=== PATIENT | female | born 1945 | race Caucasian/White ===

== ENCOUNTER → 2017-01-04 | Outpatient (CLI) | payer OTHER, MEDICARE ==
[~2017-01-04] MED LIST: ASPEC81 PO; ASPI81TA28 PO; ATOR-24 PO; CYAN500T13 PO; FLAX10007 PO; GARL1TAB12 PO; GARL705C PO; IBUP-1050 PO; LOSA50TA6 PO; LPR25 PO; LPT40 PO; LSN5 PO; MAGN250T3 PO; MISC1TAB74 PO; NIAC250T8 PO; OMEGCAP2 PO; PLV75 PO; POTA1TAB94 PO; PYRI100T4 PO; SULF-183 PO; TPRSR/25 PO; ZNTT/150 PO
--- NOTE | 2017-01-04 13:42 | MAMMOGRAPHY REPORT ---
BILATERAL DIGITAL SCREENING MAMMOGRAM WITH CAD: 01/04/2017 CLINICAL HISTORY: Routine screening. Patient has no complaints. TECHNIQUE: Current study was also evaluated with a Computer Aided Detection (CAD) system. Bilateral CC and MLO views were obtained. Note that the right MLO view is somewhat suboptimal due to difficul ties with the patient to tolerate proper positioning due to limited range of motion in her shoulder; note that the pectoralis muscle is not visualized on the right MLO view. COMPARISON: Comparison is made to exams dated: 01/03/2016 mammogram, 12/30/2014 mammogram, 4 mammogram, 12/25/2012 mammogram, 12/25/2011 mammogram, and 12/21/2010 mammogram - [facility]. BREAST COMPOSITION: The tissue of both breasts is almost entirely fatty. FINDINGS: No suspicious masses, calcifications, or areas of architectural distortion are noted in ei ther breast. There has been no significant interval change compared to prior exams. IMPRESSION: ACR BI-RADS CATEGORY 1: NEGATIVE There is no mammographic evidence of malignancy. A 1 year screening mammogram is recommended. The pa tient will receive written notification of the results. Approximately 10% of breast cancers are not detected with mammography. A negative mammographic report should not delay biopsy if a clinically suggestive mass is present. Kimmy Moran M.D. /:01/04/2017 12:07:18 Acid Patroller: Avelina Mehta, [facility] letter sent: Normal 1/2 BI-RADS Code: ACR BI-RADS Category 1: Negative
== END | disposition home or self-care (01) ==
LOC: C.MAMM 08:57
PROVIDERS: ATTEND Obstetrics & Gynecology
DX: Z12.31 Encounter for screening mammogram for malignant neoplasm of breast (principal)

== ENCOUNTER 2017-03-01 06:28 | Inpatient (IN) | payer OTHER, MEDICARE ==
[2017-01-16 10:12] VITALS: BMI 36.0
--- NOTE | 2017-01-16 10:45 | PAT Medication Instructions ---
Service Date Jan 16, 2017. Current Home Medication List Aspirin (Aspirin Ec), 81 MG PO QAM Atorvastatin (Lipitor), 40 MG PO QAM Cyanocobalamin (Vitamin B12 500MCG), 250 MCG PO QPM Flaxseed (Linseed) (Flax Seed Oil), 1 CAP PO QPM Ibuprofen (Advil), 200 MG PO QAM Losartan Potassium (Cozaar), 50 MG PO QAM Magnesium (Magnesium 250 mg), 1 TAB PO QPM Metoprolol Succinate (Metoprolol Succinate ER), 25 MG PO QPM Misc Natural Products (Green Tea), 1 TAB PO QPM Pyridoxine (Vitamin B6), 0.5 TAB PO QPM Ranitidine (Zantac), 150 MG PO BID Medication Instructions For Your Scheduled Surgery - Hold the following medications 2 weeks prior to surgery: Flaxseed (Linseed) (Flax Seed Oil), 1 CAP PO QPM - Hold the following medications per your surgeon's instructions: Ibuprofen (Advil), 200 MG PO QAM - Hold the following medications the morning of surgery: Losartan Potassium (Cozaar), 50 MG PO QAM - Take the following medications the morning of surgery with a sip of water: Aspirin (Aspirin Ec), 81 MG PO QAM Ranitidine (Zantac), 150 MG PO BID Atorvastatin (Lipitor), 40 MG PO QAM - Take the following medications as scheduled the night before surgery: Ranitidine (Zantac), 150 MG PO BID Magnesium (Magnesium 250 mg), 1 TAB PO QPM Metoprolol Succinate (Metoprolol Succinate ER), 25 MG PO QPM Misc Natural Products (Green Tea), 1 TAB PO QPM Pyridoxine (Vitamin B6), 0.5 TAB PO QPM Cyanocobalamin (Vitamin B12 500MCG), 250 MCG PO QPM If you have any questions please call us at [phone] or [phone] or [phone]
[2017-01-16 11:18] LABS: BASO % 0.3 %; BASO ABS # 0.02 K/uL (0-0.2); COMPLETE YES; EOS % 1.1 %; HEMATOCRIT 39.3 % (37-47); IG% 0.1 %; LYMPH % 21.7 %; LYMPH ABS # 1.63 K/uL (1.2-3.4); MEAN CELL VOLUME 87.3 fL (80-100); MEAN CORPUSCULAR HEMOGLOBIN 29.1 pg (25-34); MEAN CORPUSCULAR HGB CONC 33.3 g/dl (32-36); MEAN PLATELET VOLUME 9.3 fL (7.4-10.4); MONO % 6.3 %; NEUT % 70.5 %; PLATELET COUNT 272 K/uL (130-400); WHITE BLOOD COUNT 7.52 K/uL (4.8-10.8)
[2017-01-16 11:21] LABS: URINE APPEARANCE CLEAR (CLEAR); URINE BILIRUBIN NEG (NEG); URINE COLOR YELLOW; URINE EPITHELIAL CELL AUTO 0-5 /lpf (0-5); URINE NITRITE NEG (NEG); URINE SPECIFIC GRAVITY 1.025 (1.000-1.030); UROBILINOGEN NEG (NEG)
[2017-01-16 11:23] LABS: MANUAL MICROSCOPIC REQUIRED? NO; REVIEW REQ? NO
[2017-01-16 11:29] LABS: PROTHROMBIN TIME (PATIENT) 10.4 SECONDS (9.0-12.0)
--- NOTE | 2017-01-16 11:44 | DIAGNOSTIC IMAGING REPORT ---
CHEST PREADMISSION(PA/LAT) CLINICAL HISTORY: Preoperative evaluation. COMPARISON STUDY: Chest radiograph November 16, 2015. FINDINGS: Lung volumes are normal. No pneumothorax or pleural effusion is present. Pulmonary vascularity is normal. Cardiac size is within normal limits. Incidental note is made of S-shaped scoliosis of the thoracolumbar spine. There is no consolidation to suggest pneumonia. Apparent osteoarthritis of the right glenohumeral joint is noted. A subcoracoid loose body may be present. IMPRESSION: No acute cardiopulmonary findings. Electronically signed by: Kin Vera M.D. 01/16/2017 11:43 AM Dictated Date/Time: 01/16/2017 11:41 AM
--- NOTE | 2017-02-27 17:20 | HISTORY & PHYSICAL EXAMINATION ---
DATE OF ADMISSION: 03/01/2017 CHIEF COMPLAINT: Primary osteoarthritis of the right shoulder. HISTORY OF PRESENT ILLNESS: Arelis is a pleasant 71-year-old female who has been dealing with a several year history of chronic right shoulder pain. She is having trouble sleeping at night and having trouble doing activities away from her body. X-rays and clinical examination of the shoulder have been diagnostic for primary osteoarthritis. After failing extensive conservative treatment, she elected to proceed with a right total shoulder arthroplasty. PAST MEDICAL HISTORY: MS in October of 2015, heart murmur, hypertension. She had cardiac stent placement in October 2015 and heart catheterization in October of 2016, hyperparathyroidism, osteoarthritis, obesity, GERD. MEDICATIONS: Aspirin 81 mg daily, Lipitor 40 mg daily, losartan 50 mg daily, metoprolol 25 mg daily, Zantac 150 mg twice a day, vitamin B12 250 mg daily. PAST SURGICAL HISTORY: Significant for a tonsillectomy, tubal ligation, ORIF of the right wrist and a left total knee arthroplasty. FAMILY HISTORY: Denies. SOCIAL HISTORY: She denies any tobacco, alcohol or IV drug use. Her activities are limited because of her shoulder pain. REVIEW OF SYSTEMS: She complains of right shoulder pain. All other pertinent review of systems are negative. PHYSICAL EXAMINATION: GENERAL: She is awake, alert and oriented x3. She is in no apparent distress. She is very pleasant. HEENT: Pupils are equal, round and reactive to light. Extraocular motion intact. Oral mucosa is pink and moist. HEART: Regular rate per radial pulse. LUNGS: Jenni symmetrically bilaterally with no audible breath sounds. ABDOMEN: Soft, nontender, nondistended. MUSCULOSKELETAL: On physical examination of the shoulder, she has about 170 degrees of forward flexion, 170 degrees of abduction. She has a lot of crepitus with active range of motion. Passively I can get her a little bit further. She has significant tenderness to palpation over the anterior glenohumeral joint line. She has 4/5 muscle strength throughout but possibly secondary to pain. She is neurovascularly intact. IMAGING DATA: X-rays of the right shoulder do show advanced osteoarthritis with some anterior subluxation of the humeral head and anterior wear of the humeral head on the glenoid. IMPRESSION: Primary osteoarthritis of the right shoulder. PLAN: Will proceed with a Biomet comprehensive right total shoulder arthroplasty. Postoperatively, she will be placed in an arm sling and kept overnight at the hospital for postoperative medical management.
[~2017-03-01] VITALS: Ht 152.4 cm; Wt 85.4 kg
[2017-03-01] VITALS (10 sets, daily range): BP systolic 94–167; BP diastolic 53–76; PULSE 65–85; TEMP 35.9–36.7; O2SAT 93–99; Ht 152.4 cm; Wt 85.4 kg
[~2017-03-01 06:28] MED LIST changes: +ACETAMINOPHEN 500 MG TAB PO SCH; -ASPEC81 PO; +CEFAZOLIN 2000MG IV PUSH 10 ML IV SCH; +FAMOTIDINE 20 MG TAB PO SCH; +GABAPENTIN 300 MG CAP PO SCH; -GARL1TAB12 PO; -GARL705C PO; +LACTATED RINGER'S 1000ML 1,000 ML IV SCH; +LACTATED RINGER'S 1000ML IV SCH; -LPR25 PO; -LPT40 PO; -LSN5 PO; -NIAC250T8 PO; -OMEGCAP2 PO; -PLV75 PO; -POTA1TAB94 PO; +ROPIVACAINE 5MG/ML 30 ML 150 MG, BUPIVACAINE 0.5% MPF INJ 30 ML, EpINEphrine HCL INJ 0.... INFIL SCH; -SULF-183 PO
[2017-03-01] MEDS: TRANEXAMIC ACID INJ 1,000 MG in SYRINGE 0 ML IV SCH ×2 (06:30→09:11)
--- NOTE | 2017-03-01 06:54 | History & Physical Bridge Note ---
H&P Re-Evaluation Bridge Note: I have examined the patient, reviewed the History & Physical and in the interval since the performance of the History & Physical I have noted the following changes of clinical significance: No changes noted
[2017-03-01] MEDS ORDERED: BUPIVACAINE 0.5 % 5 MG/1 ML PF 10ML VIAL ONE (07:11)
[2017-03-01] MEDS ORDERED: MEPIVACAINE HCL 1.5% 30 ML VIAL ONE (07:11)
[2017-03-01] MEDS ORDERED: CLONIDINE HCL 100 MCG/ML SYRINGE ONE (07:11)
[2017-03-01] MEDS ORDERED: PROPOFOL IV EMULSION 10 MG/ML 20 ML VIAL IV ONE (08:34)
[2017-03-01] MEDS ORDERED: ONDANSETRON INJ 2 MG/ML 2 ML VIAL ONE ×2 (08:34→12:40)
[2017-03-01] MEDS ORDERED: LIDOCAINE HCL 2% 2 ML VIAL (20MG/ML) ONE (08:34)
[2017-03-01] MEDS ORDERED: GLYCOPYRROLATE INJ 0.2 MG/ML VIAL ONE ×2 (08:34→10:26)
[2017-03-01] MEDS ORDERED: DEXAMETHASONE SOD INJ 4 MG/ML VIAL ONE (08:34)
[2017-03-01] MEDS ORDERED: NEOSTIGMINE METHYLSULFATE 5 MG/5 ML SYR ONE (08:34)
[2017-03-01] MEDS ORDERED: FENTANYL CITRATE INJ 50 MCG/1 ML 2 ML VIAL ONE (08:35)
[2017-03-01] MEDS ORDERED: MIDAZOLAM HCL 1 MG/ML 2ML VIAL ONE ×2 (08:35→08:54)
[2017-03-01] MEDS ORDERED: BACITRACIN 50000 UNIT VIAL ONE (09:22)
[2017-03-01] MEDS ORDERED: ORTHO JOINT ANESTHETIC ONE (09:22)
[2017-03-01] MEDS ORDERED: PHENYLEPHRINE HCL INJ 10 MG/ML VIAL ONE (10:26)
[2017-03-01] MEDS ORDERED: LARYING-O-JET KIT (LTA) ONE ×2 (10:26)
[2017-03-01] MEDS ORDERED: ROCURONIUM BROMIDE 10 MG/ML 5 ML VIAL IV ONE (11:08)
--- NOTE | 2017-03-01 11:37 | [facility] Post Operative Brief Note ---
Immediate Operative Summary Operative Date Mar 01, 2017. Pre-Operative Diagnosis Primary osteoarthritis of the right shoulder. Post-Operative Diagnosis same as pre-operative Procedure(s) Performed Right Total Shoulder Arthroplasty Surgeon Dr. Patrick Shi Lining Setter Surgeon(s) ADILSON Allen Estimated Blood Loss 250ml Findings as above Specimens Permanent Specimen A: Right humeral head Complication(s) Proximal humeral fracture (crack) treated with a cable Disposition Recovery Room / PACU
[2017-03-01] MEDS ORDERED: HYDROmorphone INJ 1 MG/ML SYR IV PRN (11:45)
[2017-03-01] MEDS ORDERED: BISACODYL 10 MG SUPP PR PRN (11:45)
[2017-03-01] MEDS ORDERED: SOD PHOSPHATE/SOD BIPHOSPHATE ENEMA 132 ML BTL PR PRN (11:45)
[2017-03-01] MEDS ORDERED: NALOXONE HCL 0.4 MG/1 ML VIAL/CARP IV PRN ×2 (11:45→12:15)
[2017-03-01] MEDS ORDERED: CEFAZOLIN IV 2,000 MG in DEXTROSE 5% 50ML 50 ML IV SCH (11:45)
[2017-03-01] MEDS ORDERED: MAGNESIUM HYDROXIDE SUSP 30 ML UDC PO PRN (11:45)
[2017-03-01] MEDS ORDERED: METOCLOPRAMIDE HCL INJ 5 MG/ML 2 ML VIAL IV PRN (11:45)
[2017-03-01] MEDS ORDERED: ONDANSETRON INJ 2 MG/ML 2 ML VIAL IV PRN ×2 (11:45→12:15)
[2017-03-01] MEDS ORDERED: PROMETHAZINE HCL INJ 12.5 MG in SODIUM CHLORIDE 0.9% 50ML 50 ML IV PRN (12:15)
[2017-03-01] MEDS ORDERED: FLUMAZENIL 0.1 MG/1 ML 10 ML VIAL IV PRN (12:15)
[2017-03-01] MEDS ORDERED: EpHEDrine SULFATE INJ 50 MG/ML AMP IV PRN (12:15)
[2017-03-01] MEDS ORDERED: LABETALOL HCL IV 5 MG/ML 20ML IV PRN (12:15)
[2017-03-01] MEDS ORDERED: ATROPINE SULFATE 0.1 MG/ML 5ML SYR IV PRN (12:15)
--- NOTE | 2017-03-01 12:43 | DIAGNOSTIC IMAGING REPORT ---
R SHOULDER MIN 2 VIEWS ROUTINE CLINICAL HISTORY: Post shoulder surgery postoperative evaluation COMPARISON: None. DISCUSSION: Total right shoulder arthroplasty. Good contact between prosthetic and underlying bone. Expected soft tissue postoperative change. Surgical drains in position. Possible cortical defect humeral shaft immediately distal to the humeral prosthetic. IMPRESSION: Potential cortical fracture medially distal to the humeral prosthetic. All remaining components of the study remain stable. The above report was generated using voice recognition software. It may contain grammatical, syntax or spelling errors. Electronically signed by: Tee Live M.D. 03/01/2017 12:42 PM Dictated Date/Time: 03/01/2017 12:39 PM
--- NOTE | 2017-03-01 12:58 | OPERATIVE REPORT ---
DATE OF OPERATION: 03/01/2017 PREOPERATIVE DIAGNOSIS: Primary osteoarthritis of the right shoulder with an insufficient rotator cuff. POSTOPERATIVE DIAGNOSIS: Same. PROCEDURE: Right reverse total shoulder arthroplasty. SURGEON: Dr. Patrick Shi. STATE AUDITOR: Gagan Em PA-C, whose assistance was necessary for positioning of the arm and retraction. ANESTHESIA: General with a right interscalene nerve block. COMPLICATIONS: Longitudinal proximal humeral crack that was treated with a cable. CONDITION: Stable to PACU. IMPLANTS USED: I used a Biomet comprehensive reverse right shoulder arthroplasty with a 25 mm mini base plate, a single 35 mm central screw, 2 peripheral locking screws, a 36 mm eccentric glenosphere, a size 11 mini stem and a standard humeral tray and bearing. INDICATIONS: Arelis is a pleasant 72-year-old female who presented to my office with chronic right shoulder pain. She had limited range of motion too. X-rays showed advanced osteoarthritis with anterior glenoid wear. After failing conservative treatment, she elected to undergo a shoulder replacement. DESCRIPTION OF PROCEDURE: On 03/01/2017, she arrived at [facility] for the above procedure. She was seen in the preoperative holding area and the operative extremity was identified and signed. She was given a preoperative antibiotic and a right interscalene nerve block. She was taken back to the operating room, laid on the table in supine position and put under general anesthesia. She was then put into the beachchair position. The right shoulder was prepped and draped in sterile fashion. Time-out was done and the patient and operative extremity was properly identified. A deltopectoral approach was used. Dissection was taken down through the fascia and the anterior shoulder was exposed. The long head of biceps tendon was tenotomized and the interval was opened. The subscapularis was tenotomized off the lesser tuberosity with a centimeter of cuff tissue remaining. The supraspinatus had a 90% partial thickness rotator cuff tear and the remaining 10% was released. At this point, I decided to do a reverse shoulder arthroplasty. The proximal humerus was exposed. Sequential reaming up to a size 11 reamer was done. Off that reamer, a proximal humeral resection guide was placed and the proximal humerus was resected at 135 degrees of inclination and 20 degrees of retroversion. The glenoid was then exposed. Time was spent doing a complete circumferential capsular and labral release. The Arthrex guide was then placed on the anterior cortex and a guide pin was placed in reverse total shoulder arthroplasty hole. A 25 mm mini base plate was then reamed and the final baseplate was then impacted into place. A 35 mm central screw was placed and got an excellent bite. Superior and inferior locking screws were then placed. A 36 mm eccentric glenosphere was then impacted into place. The proximal humerus was exposed. Sequential broaching up to an 11 broach was done. A standard humeral tray and bearing was placed and the shoulder was reduced, brought through a full range of motion and felt to be stable. The shoulder was then dislocated. The final 11 stem was then impacted into place and a standard humeral tray and bearing were then placed. The shoulder was reduced. The shoulder was brought through a full range of motion and felt to be stable. The subscapularis was then tenodesed back to the lesser tuberosity with transosseous FiberWire sutures. The surrounding joint was then irrigated with 3 liters of normal saline solution with bacitracin. Surrounding soft tissues were injected with 100 mL of an orthopedic pain control cocktail. On final examination of the shoulder, when I was going in external rotation, I did feel slight crack. I was able to palpate a longitudinal crack posteriorly on the humeral neck. When I went to extreme external rotation, it seemed like the humeral stem was unstable. I decided to place a cable. A single dull Ramon cable was placed around the proximal humerus. This allowed an anatomic reduction of the fracture. I could not even feel the fracture after the cable was placed. I brought the shoulder through a full range of motion and everything felt stable including the stem. The wound was then irrigated once again. A drain was placed. Skin was then closed with 2-0 Vicryl, 3-0 V-Loc suture and angy. She was placed in a soft dressing and regular arm sling. She was then extubated, transferred to a [facility] and taken to the postanesthesia care unit in stable condition. She tolerated the procedure well. I attest to the content of the Intraoperative Record and any orders documented therein. Any exception s are noted below.
[2017-03-01] MEDS ORDERED: SUCCINYLCHOLINE 100MG/5ML SYR IV ONE (13:15)
--- NOTE | 2017-03-01 13:18 | Anesthesiology Progress Note ---
Anesthesia Post Op Note Date & Time Mar 01, 2017 at 13:17 Vital Signs Pain Intensity: 0 Vital Signs Past 12 Hours Date Time Temp Pulse Resp B/P (MAP) Pulse Ox O2 Delivery O2 Flow Rate FiO2 03/01/17 12:40 60 17 101/61 93 Oxymask 2 03/01/17 12:30 73 20 112/55 96 Oxymask 2 03/01/17 12:20 74 15 122/56 97 Oxymask 10 03/01/17 12:10 80 21 125/66 98 Oxymask 10 03/01/17 12:04 36.1 93 22 155/73 98 Oxymask 10 03/01/17 06:52 36.7 85 18 167/74 98 Room Air Notes Mental Status: alert / awake / arousable, participated in evaluation Pt Amnestic to Procedure: Yes Nausea / Vomiting: adequately controlled Pain: adequately controlled Airway Patency, RR, SpO2: stable & adequate BP & HR: stable & adequate Hydration State: stable & adequate Anesthetic Complications: no major complications apparent
[2017-03-01] MEDS: POTASSIUM CHLORIDE INJ 10 MEQ in SODIUM CHLORIDE 0.9% 1000ML 1,000 ML IV SCH ×2 (14:25→23:27)
[2017-03-01] MEDS: ACETAMINOPHEN IV 1,000 MG in EMPTY BAG 0 ML IV SCH ×2 (14:25→21:24)
[2017-03-01] MEDS: KETOROLAC TROMETHAMINE 15 MG/ML VIAL IV. SCH ×2 (18:01→23:27)
[2017-03-01] MEDS: CEFAZOLIN IV 2,000 MG in SYRINGE 0 ML IV SCH (18:01)
[2017-03-01] MEDS ORDERED: MAGNESIUM OXIDE 400 MG TAB PO SCH (21:00)
[2017-03-01] MEDS ORDERED: METOPROLOL SUCC 25MG EXT REL TAB PO SCH (21:00)
[2017-03-01] MEDS ORDERED: SENNA 8.6 MG TAB PO SCH (21:00)
[2017-03-01] MEDS ORDERED: PYRIDOXINE HCL 50 MG TAB PO SCH (21:00)
[2017-03-01] MEDS ORDERED: CYANOCOBALAMIN 500 MCG TAB (VIT B-12) PO SCH (21:00)
[2017-03-01] MEDS: DOCUSATE SODIUM 100 MG CAP PO SCH (21:22)
[2017-03-01] MEDS: RANITIDINE HCL 150 MG TAB PO SCH (21:23)
[2017-03-02] MEDS: CEFAZOLIN IV 2,000 MG in SYRINGE 0 ML IV SCH (01:39)
[2017-03-02 03:26] VITALS: BP 132/71; PULSE 60; TEMP 36.4; O2SAT 96
[2017-03-02] MEDS: OXYCODONE HCL IR 5 MG TAB (IMMEDIATE RELEASE) PO PRN ×2 (03:52→08:20)
[2017-03-02] MEDS: KETOROLAC TROMETHAMINE 15 MG/ML VIAL IV. SCH (06:15)
[2017-03-02] MEDS: ACETAMINOPHEN IV 1,000 MG in EMPTY BAG 0 ML IV SCH (06:15)
[2017-03-02 06:34] LABS: HEMATOCRIT 33.9 % (37-47); MEAN CELL VOLUME 88.1 fL (80-100); MEAN CORPUSCULAR HEMOGLOBIN 29.1 pg (25-34); MEAN PLATELET VOLUME 9.5 fL (7.4-10.4); PLATELET COUNT 243 K/uL (130-400); RED BLOOD COUNT 3.85 M/uL (4.2-5.4); WHITE BLOOD COUNT 15.69 K/uL (4.8-10.8)
[2017-03-02 07:12] LABS: BUN/CREATININE RATIO 31.2 (10-20); CALCIUM 9.3 mg/dl (8.5-10.1); CREATININE 0.68 mg/dl (0.60-1.20); POTASSIUM 5.2 mmol/L (3.5-5.1)
[2017-03-02 07:28] VITALS: BP 130/74; PULSE 57; TEMP 36.7; O2SAT 94
[2017-03-02] MEDS ORDERED: NURSING VERBAL MED ORDER ONE (07:45)
[2017-03-02] MEDS ORDERED: RXC5 PO (07:54)
--- NOTE | 2017-03-02 07:56 | Discharge Instructions ---
Discharge Instructions Date of Service Mar 02, 2017. Admission Reason for Admission: Right Shoulder Degenerative Joint Disease Discharge Discharge Diagnosis / Problem: Right Reverse Total Shoulder Discharge Goals Goal(s): Decrease discomfort, Improve function Activity Recommendations Activity Limitations: as noted below . Instructions / Follow-Up Instructions / Follow-Up Activity and Therapy Recommendations: * Wear your sling for 6 weeks, unless otherwise instructed. You may remove your sling to shower and to dress, but otherwise, you should be in your sling at all times, including while sleeping * The shoulder replacement is very stable and you can use your hand while in the sling * Physical Therapy should start about 6 weeks from your day of surgery. Therapy will last about 8-12 weeks * You were shown a series of exercises in the hospital. Do these exercises daily including the exercises you were shown in physical therapy. Medications: * Narcotic You will likely be sent home from the hospital with a prescription for the narcotic pain medication that worked best throughout your stay. * Other medications may be prescribed for specific circumstances. If you have any questions, please call the office at . * Resume previous home medications unless otherwise instructed Showering: You may shower 5 days from the day of surgery. Let the soapy shower water run over it the angy. Do not scrub or soak the dressing or the incision. Things To Watch For: * Drainage from the incision site that occurs more than one week after your surgery. * Increased redness at the incision site. * Fever above 102 degrees Fahrenheit. * Unusual chest pain or shortness of breath. * Call [facility] at with any of the above problems Follow-Up Visit: Follow-up with Dr. Shi 2-3 weeks after your day of surgery. An appointment was probably scheduled when you signed-up for surgery in the office. If you have any questions call Office Instructions: More detailed instructions as well as Frequently Asked Questions were provided in a folder by our office when you signed-up for surgery. Please review these instructions when you get home. If you have any further questions or concerns, please feel free to call the office at [phone] Current Hospital Diet Patient's current hospital diet: Regular Diet Discharge Diet Recommended Diet: Regular Diet Procedures Procedures Performed: Right Total Shoulder Arthroplasty Pending Studies Studies pending at discharge: no Medical Emergencies . Who to Call and When: Medical Emergencies: If at any time you feel your situation is an emergency, please call 911 immediately. . Non-Emergent Contact Non-Emergency issues call your: Surgeon Call Non-Emergent contact if: wound has increased drainage, wound has increased redness . "Provider Documentation" section prepared by Patrick Shi. . VTE Core Measure Inpt VTE Proph given/why not?: Treatment not indicated
[2017-03-02] MEDS: DOCUSATE SODIUM 100 MG CAP PO SCH (08:16)
[2017-03-02] MEDS: RANITIDINE HCL 150 MG TAB PO SCH (08:16)
--- NOTE | 2017-03-02 08:25 | PROGRESS NOTE ---
DATE: 03/02/2017 CHIEF COMPLAINT: Status post reverse right shoulder arthroplasty postop day #1. PROGRESS: Arelis was seen and examined at bedside today. Overall, she is doing well. She has a little soreness in the shoulder, but is not too bad. She was able to sleep last night and has no complaints. PHYSICAL EXAMINATION: VITAL SIGNS: All stable on room air and she is voiding on her own. RIGHT SHOULDER: The dressing is clean and dry and the drain is to suction. Her radial, median and ulnar nerves were checked and intact at the wrist. Her axillary nerve was not checked yet. LABORATORY DATA: She has an H&H today of 11.2 and 33.9. Her glucose is 119. IMAGING DATA: X-rays postoperatively of the right shoulder show a well-placed right reverse shoulder arthroplasty with a cable around the mid shaft. There is also a nondisplaced cortical fracture seen distal to the stem. IMPRESSION: Status post right reverse shoulder arthroplasty postop day #1. PLAN: Overall, she is doing very well. I am going to keep her in a sling for 6 weeks just to make sure everything stabilize. I did explain the cortical fracture and the cable to her and her and they understand. It should not impede her overall recovery at all. Later today, the nursing staff will change the dressing and pull the drain. She will be seen by physical therapy for hand, wrist and elbow exercises. Discharge to home later this morning.
--- NOTE | 2017-03-02 08:33 | DISCHARGE SUMMARY ---
DISCHARGE DIAGNOSIS: Primary osteoarthritis of the right shoulder. PROCEDURE: Right reverse total shoulder arthroplasty on 03/01/[address] Patrick Shi. DISCHARGE INSTRUCTIONS: 1. Oxycodone 5-10 mg every 4 hours as needed for pain. 2. Aspirin 81 mg daily. 3. Lipitor 40 mg daily. 4. Cozaar 50 mg daily. 5. Toprol 25 mg daily. 6. Zantac 150 mg daily. 7. Continue all vitamins, minerals and [id number] medications. 8. Right arm sling for 6 weeks. 9. Start physical therapy in 6 weeks. 10. Follow up with Dr. Shi in 2 weeks. 11. Call the office of Dr. Shi with any questions or concerns. HOSPITAL COURSE: Arelis is a pleasant 72-year-old female who presented to my office with chronic right shoulder pain. X-rays and clinical examination were diagnostic for primary osteoarthritis of the right shoulder. She elected to undergo shoulder arthroplasty. On 03/01/2017, she arrived at [facility] and underwent a reverse right shoulder arthroplasty without complications. During the procedure, she was found to have insufficient supraspinatus and severe synovitis. I thought she will do better with a reverse replacement. During the procedure, there was a small crack in the humerus, which required a single cable fixation. Postoperatively, she was discharged to general orthopedic floor. Her hospital course was uneventful. On postop day #1, her H&H was stable at 11.2 and 33.9. She was able to participate with physical therapy. The nursing staff changed the dressing, pulled the drain and she was subsequently discharged to home with the above instructions.
[2017-03-02] MEDS ORDERED: MULTIVITAMIN TAB PO SCH (09:00)
[2017-03-02] MEDS ORDERED: ATORVASTATIN 40 MG TAB PO SCH (09:00)
[2017-03-02] MEDS ORDERED: LOSARTAN POTASSIUM 50 MG TAB PO SCH (09:00)
[2017-03-02] MEDS ORDERED: ASPIRIN 81 MG ECTAB PO SCH (09:00)
[2017-03-02 09:43] VITALS: BP 130/74; PULSE 57; TEMP 36.7; O2SAT 94
== END 2017-03-02 10:20 | disposition home or self-care (01) | DRG 483 ==
LOC: C.ACU 06:28 → C.3E 07:00 → ENRESERV 12:26
PROVIDERS: ADMIT Orthopaedic Surgery; ATTEND Orthopaedic Surgery
PROC: 0RRJ00Z Replacement of Right Shoulder Joint with Reverse Ball and Socket Synthetic Substitute, Open Approach (ICD-10-PCS; principal; 2017-03-01 09:10)
DX: M19.011 Primary osteoarthritis, right shoulder (principal); I10 Essential (primary) hypertension; Z95.818 Presence of other cardiac implants and grafts; Z79.82 Long term (current) use of aspirin

== ENCOUNTER 2019-11-24 17:20 | Inpatient (IN) ==
[2019-11-24] MEDS ORDERED: SODIUM CHLORIDE 0.9% 1000ML 1,000 ML IV ONE (17:44)
[2019-11-24] MEDS ORDERED: CEFEPIME 2,000 MG in SYRINGE 7.5 ML IV STA (17:48)
[2019-11-24] MEDS ORDERED: CEFEPIME 20 ML IV ONE (17:48)
--- NOTE | 2019-11-24 17:59 | Emergency Department Note ---
History of Present Illness General Chief complaint: Abnormal Labs/Diagnostic Testing Stated complaint: abnormal labs Time Seen by Provider: 11/24/19 17:37 Source: patient and family (Spouse who is at the bedside) Mode of arrival: ambulatory Limitations: no limitations History of Present Illness This patient comes in after having positive blood cultures with gram negative bacilli. She was seen here overnight where she had nausea vomiting and some intermittent abdominal pain she had negative CAT scan. Her lactic acid was 4 initially but cleared to 1 her procalcitonin was normal she strongly desired to go home and did not want to stay apparently to get a urinalysis dip on the way out the door that dipped positive for blood but no culture was obtained. Since she is gone home she does feel significantly better although still tired. She is had no fever since she left here she has had no vomiting although has some nausea. No cough. No known exposure to COVID. Home Medications Home Medications Medication Instructions Recorded Confirmed Type aspirin 81 mg tablet,delayed 81 mg PO QAM tab 12/22/18 11/24/19 History release atorvastatin 40 mg tablet 40 mg PO QAM tab 12/22/18 11/24/19 History flaxseed oil 1,000 mg capsule 1,000 mg PO DAILY cap 12/22/18 11/24/19 History green tea leaf extract 1 cap PO DAILY cap 12/22/18 11/24/19 History ibuprofen 200 mg tablet 200 mg PO QAM tab 12/22/18 11/24/19 History losartan 50 mg tablet 50 mg PO QAM #30 tab 12/22/18 11/24/19 History magnesium 250 mg tablet 250 mg PO DAILY 12/22/18 11/24/19 History metoprolol succinate 25 mg 25 mg PO HS #30 tab 12/22/18 11/24/19 History tablet,extended release 24 hr pyridoxine (vitamin B6) 100 mg 100 mg PO DAILY tab 12/22/18 11/24/19 History tablet amoxicillin 2,000 mg PO DIRECTED PRN 11/24/19 11/24/19 History cefdinir 300 mg PO BID 10 Days #20 cap 11/24/19 Rx coenzyme Q10 200 mg PO DAILY 11/24/19 11/24/19 History cyanocobalamin (vitamin B-12) 500 mcg PO DAILY 11/24/19 11/24/19 History [Vitamin B-12] pantoprazole 40 mg PO QAM 11/24/19 11/24/19 History Allergies Allergy/AdvReac Type Severity Reaction Status Date / Time morphine AdvReac Intermediate NAUSEA/VOMI Verified 11/24/19 02:42 TING erythromycin base AdvReac Mild yeast Verified 11/24/19 02:42 infection ibandronate sodium AdvReac Mild diarrhea Verified 11/24/19 02:42 [From [facility]] lisinopril AdvReac Mild COUGH Verified 11/24/19 02:42 Ibandronic Acid AdvReac Mild d/c'ed due Uncoded 11/24/19 02:42 to dental implant Past Med/Surg History Surgical History H/O adenoidectomy H/O shoulder replacement left S/P knee replacement S/P tonsillectomy S/P tubal ligation Family History Mother Myocardial infarction Heart disease Father Myocardial infarction sudden at age 41 Sister jose antonio turner Denies family history of Ovarian cancer Prostate cancer Breast cancer Colorectal cancer Social History Smoking Status: Never smoker Second Hand Exposure: No; Hx Alcohol Use: Yes Hx Substance Use: No Preferred Language: Serbian Communication Ability: Effective Visual Impairment: No Limitations Hearing Ability: Normal Manager Medical Device Required: No Beliefs That Will Affect Care: None marital status: Current Living Situation: Spouse current occupational status: retired Other Information That Helps Us Care for You: No Feels Safe at Home: Yes Safety Concerns: Feels Safe At This Time Dental Care, Regularly: Yes Physical Activity Frequency: 3-4 Times per Week Seatbelt Use: always Review of Systems A total of 10 systems reviewed and were otherwise negative Physical Exam Vital Signs Vital Signs - 24 hr 11/24/19 17:21 Temperature 36.8 C Temperature Source Oral Pulse Rate 88 Respiratory Rate 18 Blood Pressure 146/61 H Blood Pressure Mean 89 Pulse Oximetry 95 Sepsis Recent Fever Within 48 Hours Yes Sepsis New/Unexplained Change in Mental Status No Sepsis Action Taken by Nursing No Action Required General: Well developed well nourished older female who appears in no acute distress. Pupils are equal round and reactive to light. Extraocular movements are intact. Oropharynx is pink with moist mucous membranes. No swelling of the mouth lips or tongue. Neck: Supple with a midline trachea. No meningeal signs or stiffness, no JVD or bruits. No Stridor. Chest: Clear to auscultation bilaterally. No wheezes or rhonchi. No increased work of breathing. Heart: Regular rate and rhythm without murmurs or gallops. Abdomen: Soft nontender, nondistended without rebound guarding or rigidity. Extremities: No cyanosis clubbing or edema. No calf tenderness or assymetry Spine/Back. Non tender to palpation. No CVA tenderness Skin: Good turgor without rashes. Neurologic exam: Cranial nerves two through 12 are intact. Motor and sensation are intact and symmetrical throughout. Course Administered Medications Discontinued Medications Sodium Chloride (Nss 1000ml) 1,000 mls @ 999 mls/hr IV .Q1H1M ONE Stop: 11/24/19 18:44 Last Infusion: 11/24/19 19:50 Dose: 0 mls/hr Documented by: [id number] Admin: 11/24/19 18:55 Dose: 999 mls/hr Documented by: [id number] Cefepime HCl (Maxipime) 20 mls @ 5.5 mls/min IV 1748 ONE Stop: 11/24/19 17:51 Last Admin: 11/24/19 18:55 Dose: 5.5 mls/min Documented by: [id number] Medical Decision Making Differential Diagnosis Sepsis, dehydration, UTI, electrolyte or metabolic abnormality Medical Records Attestation: I reviewed the patient's medical records. Home Medications Current Medication List: was personally reviewed by me Laboratory Data Attestation: I reviewed the patient's lab results. Result diagrams: 11/24/19 18:14 11/24/19 18:14 Lab Results 11/24/19 11/24/19 11/24/19 Range/Units 18:14 18:14 18:14 WBC 18.86 H D (4.8-10.8) K/uL RBC 3.95 L (4.2-5.4) M/uL Hgb 11.0 L (12.0-16.0) g/dL Hct 34.2 L (37-47) % MCV 86.6 (80-100) fL MCH 27.8 (25-34) pg MCHC 32.2 (32-36) g/dL RDW Std Deviation 48.1 H (36.4-46.3) fL RDW Coeff of Nabil 15.1 H (11.5-14.5) % Plt Count 197 (130-400) K/uL MPV 9.4 (7.4-10.4) fL Immature Gran % (Auto) 0.5 % Neut % (Auto) 95.0 % Lymph % (Auto) 2.5 % Henry % (Auto) 1.8 % Eos % (Auto) 0.1 % Baso % (Auto) 0.1 % Neut # (Auto) 17.91 H (1.4-6.5) K/uL Lymph # (Auto) 0.48 L (1.2-3.4) K/uL Henry # (Auto) 0.34 (0.11-0.59) K/uL Eos # (Auto) 0.01 (0-0.5) K/uL Baso # (Auto) 0.02 (0-0.2) K/uL Immature Gran # (Auto) 0.10 H (0.00-0.02) K/uL PT 11.8 (9.0-12.0) Seconds INR 1.1 (0.9-1.1) APTT 31.9 H (21.0-31.0) Seconds PTT Ratio 1.1 Sodium 141 (136-145) mmol/L Potassium 3.8 (3.5-5.1) mmol/L Chloride 111 H (98-107) mmol/L Carbon Dioxide 23 (21-32) mmol/L Anion Gap 7.0 (3-11) BUN 14 (7-18) mg/dl Creatinine 0.89 (0.6-1.2) mg/dl Est Cr Clr Drug Dosing 56.1 ml/min Est GFR ( Amer) 74.5 Est GFR (Non-Af Amer) 64.3 BUN/Creatinine Ratio 15.4 (10-20) Glucose 99 (70-99) mg/dl Lactate (0.4-2.0) mmol/L Calcium 9.2 (8.5-10.1) mg/dl Magnesium 2.1 (1.8-2.4) mg/dl Total Bilirubin 0.7 (0.2-1) mg/dl AST 32 (15-37) U/L ALT 33 (12-78) U/L Alkaline Phosphatase 101 (45-117) U/L Total Protein 6.2 L (6.4-8.2) gm/dl Albumin 2.9 L (3.4-5.0) gm/dl Globulin 3.3 (2.5-4.0) gm/dl Albumin/Globulin Ratio 0.9 (0.9-2) Procalcitonin (0-0.5) ng/ml Urine Color Urine Appearance (Clear) Urine pH (4.5-7.5) Ur Specific Donnellson (1.000-1.030) Urine Protein (Negative) Urine Glucose (UA) (Negative) Urine Ketones (Negative) Urine Blood (Negative) Urine Nitrite (Negative) Urine Bilirubin (Negative) Urine Urobilinogen (Negative) Ur Leukocyte Esterase (Negative) Urine WBC (Auto) (0-5) /hpf Urine RBC (Auto) (0-4) /hpf U Hyaline Cast (Auto) (0-5) /lpf U Epithel Cells (Auto) (0-5) /lpf Urine Bacteria (Auto) (Negative) 11/24/19 11/24/19 11/24/19 Range/Units 18:14 18:14 18:23 WBC (4.8-10.8) K/uL RBC (4.2-5.4) M/uL Hgb (12.0-16.0) g/dL Hct (37-47) % MCV (80-100) fL MCH (25-34) pg MCHC (32-36) g/dL RDW Std Deviation (36.4-46.3) fL RDW Coeff of Nabil (11.5-14.5) % Plt Count (130-400) K/uL MPV (7.4-10.4) fL Immature Gran % (Auto) % Neut % (Auto) % Lymph % (Auto) % Henry % (Auto) % Eos % (Auto) % Baso % (Auto) % Neut # (Auto) (1.4-6.5) K/uL Lymph # (Auto) (1.2-3.4) K/uL Henry # (Auto) (0.11-0.59) K/uL Eos # (Auto) (0-0.5) K/uL Baso # (Auto) (0-0.2) K/uL Immature Gran # (Auto) (0.00-0.02) K/uL PT (9.0-12.0) Seconds INR (0.9-1.1) APTT (21.0-31.0) Seconds PTT Ratio Sodium (136-145) mmol/L Potassium (3.5-5.1) mmol/L Chloride (98-107) mmol/L Carbon Dioxide (21-32) mmol/L Anion Gap (3-11) BUN (7-18) mg/dl Creatinine (0.6-1.2) mg/dl Est Cr Clr Drug Dosing ml/min Est GFR ( Amer) Est GFR (Non-Af Amer) BUN/Creatinine Ratio (10-20) Glucose (70-99) mg/dl Lactate 1.5 (0.4-2.0) mmol/L Calcium (8.5-10.1) mg/dl Magnesium (1.8-2.4) mg/dl Total Bilirubin (0.2-1) mg/dl AST (15-37) U/L ALT (12-78) U/L Alkaline Phosphatase (45-117) U/L Total Protein (6.4-8.2) gm/dl Albumin (3.4-5.0) gm/dl Globulin (2.5-4.0) gm/dl Albumin/Globulin Ratio (0.9-2) Procalcitonin 40.05 H (0-0.5) ng/ml Urine Color Yellow Urine Appearance Clear (Clear) Urine pH 5.0 (4.5-7.5) Ur Specific Don[place]son 1.018 (1.000-1.030) Urine Protein Negative (Negative) Urine Glucose (UA) Negative (Negative) Urine Ketones Negative (Negative) Urine Blood 2+ H (Negative) Urine Nitrite Negative (Negative) Urine Bilirubin Negative (Negative) Urine Urobilinogen Negative (Negative) Ur Leukocyte Esterase 2+ H (Negative) Urine WBC (Auto) >30 H (0-5) /hpf Urine RBC (Auto) 0-4 (0-4) /hpf U Hyaline Cast (Auto) 1-5 (0-5) /lpf U Epithel Cells (Auto) 0-5 (0-5) /lpf Urine Bacteria (Auto) Negative (Negative) Imaging Data Attestation: I personally reviewed and interpreted this imaging study as follows: My Impression: Chest x-rayno acute infiltrate, failure, pneumothorax seen, upon my interpretation Radiologist's Impression: XR chest 1V portable CLINICAL HISTORY: Sepsis. COMPARISON STUDY: Chest radiograph November 24, 2019 at 2:24 AM. FINDINGS: Lung volumes are normal. There is no pneumothorax or pleural effusion. Cardiomegaly is noted without evidence for pulmonary edema. Right shoulder arthroplasty is partially imaged. IMPRESSION: No acute findings. No change in appearance of the chest. ECG Data Attestation: I personally reviewed and interpreted this ECG as follows: Indication: + other (Sepsis) Rate (beats per minute): 78 Rhythm: + normal sinus ECG Intervals/blocks: + Normal QRS, + Normal QT and + Normal AL ECG [place]: + Normal ECG ST segments: + Normal ST segments ECG Findings: no PACs and no PVCs Comparison ECG Date: from (Earlier today) Change: no significant change Blood Pressure Blood Pressure Findings: Normal blood pressure Blood Pressure Disposition: did not require urgent referral MDM Narrative This patient comes in after feeling ill overnight having a fever and nausea. She was thought to have a UTI. She did not want to be admitted and her lactic acid improved significantly. Her blood cultures came back positive for gram- negative bacilli she was called by our pharmacist and recommend she come back to the emergency department. While she does feel significantly better she still not 100% given her blood culture she will need to be admitted. I did order blood work and there is no urine culture so urine culture was also ordered. She already has positive blood cultures and did not feel the need to order additional ones. She was hydrated with IV 1 L normal saline. I discussed the case with Rosa M, our ED pharmacist, who recommended cefepime 2 g IV. The patient denies any significant antibiotic allergies. She did receive Zosyn overnight. She has a clear chest x-ray. Her white count has increased to 18.8 and her procalcitonin is also increased to 40. Her lactic acid is 1.5 however. Her urinalysis does have greater than 30 white cells so is likely the source. Her abdominal scan from earlier today was negative. She will be admitted for IV antibiotics and further treatment evaluation I have consulted Dr. Guillermo Gomez to see her in the ER for these measures. Continuous cardiac monitoring: An order was placed in the EMR for continuous cardiac monitoring. The patient was noted to be in normal sinus rhythm with a rate of 75. Continuous cardiac monitoring: An order was placed in the EMR for continuous cardiac monitoring. Impression & Plan Sepsis, Weakness, Elevated procalcitonin, Acute UTI (urinary tract infection) Discharge Plan Visit Data Chief Complaint: Abnormal Labs/Diagnostic Testing Stated Complaint: abnormal labs ED Provider: Patrick Drake Discharge Problem: Sepsis, Weakness, Elevated procalcitonin, Acute UTI (urinary tract infection) Patient Disposition: Admitted As Inpatient Discharge Instructions Interventions: ED Discharge Assessment Last Done: 11/24/19 19:51 Discharge Problem: Sepsis Qualifiers: Sepsis type: sepsis due to unspecified organism Sepsis acute organ dysfunction status: unspecified Qualified Code(s): A41.9 - Sepsis, unspecified organism
[2019-11-24 18:31] LABS: Basophils # (auto) 0.02 K/uL (0-0.2); Basophils % (auto) 0.1 %; Eosinophils # (auto) 0.01 K/uL (0-0.5); Eosinophils % (auto) 0.1 %; Hematocrit (blood only) 34.2 % (37-47); Immature Granulocytes % (auto) 0.5 %; Lymphocytes # (auto) 0.48 K/uL (1.2-3.4); Lymphocytes % (auto) 2.5 %; Mean Corpuscular Hemoglobin 27.8 pg (25-34); Mean Corpuscular Hgb Conc 32.2 g/dL (32-36); Mean Corpuscular Volume 86.6 fL (80-100); Mean Platelet Volume 9.4 fL (7.4-10.4); Monocytes # (auto) 0.34 K/uL (0.11-0.59); Monocytes % (auto) 1.8 %; Neutrophils # (auto) 17.91 K/uL (1.4-6.5); Platelet Count 197 K/uL (130-400); RDW Coefficient of Variation 15.1 % (11.5-14.5); RDW Standard Deviation 48.1 fL (36.4-46.3); Red Blood Count 3.95 M/uL (4.2-5.4); White Blood Count 18.86 K/uL (4.8-10.8)
[2019-11-24 18:35] LABS: INR 1.1 (0.9-1.1); Partial Thromboplastin Ratio 1.1; Partial Thromboplastin Time 31.9 Seconds (21.0-31.0); Prothrombin Time 11.8 Seconds (9.0-12.0)
[2019-11-24 18:36] LABS: Appearance Urine Clear (Clear); Bacteria Urine Automated Negative (Negative); Bilirubin Urine Negative (Negative); Blood Urine 2+ (Negative); Color Urine Yellow; Epithelial Cell Urine Auto 0-5 /lpf (0-5); Glucose Urine UA Negative (Negative); Ketones Urine Negative (Negative); Leukocyte Esterase Urine 2+ (Negative); Nitrite Urine Negative (Negative); Protein Urine Negative (Negative); RBC Urine Automated 0-4 /hpf (0-4); Specific Gravity Urine 1.018 (1.000-1.030); Urobilinogen Urine Negative (Negative); WBC Urine Automated >30 /hpf (0-5)
[2019-11-24 18:42] LABS: Albumin Level 2.9 gm/dl (3.4-5.0); BUN Creatinine Ratio 15.4 (10-20); Calcium 9.2 mg/dl (8.5-10.1); Creatinine Clr Calc Pharmacy 56.1 ml/min; Est GFR (African American) 74.5; Est GFR (Non-African American) 64.3; Magnesium 2.1 mg/dl (1.8-2.4); Potassium 3.8 mmol/L (3.5-5.1)
[2019-11-24 18:44] LABS: Albumin Globulin Ratio 0.9 (0.9-2); Bilirubin,Total 0.7 mg/dl (0.2-1); Globulin 3.3 gm/dl (2.5-4.0); Total Protein 6.2 gm/dl (6.4-8.2)
--- NOTE | 2019-11-24 18:53 | XRay Report ---
XR chest 1V portable CLINICAL HISTORY: Sepsis. COMPARISON STUDY: Chest radiograph November 24, 2019 at 2:24 AM. FINDINGS: Lung volumes are normal. There is no pneumothorax or pleural effusion. Cardiomegaly is note d without evidence for pulmonary edema. Right shoulder arthroplasty is partially imaged. IMPRESSION: No acute findings. No change in appearance of the chest. ACT 112: Negative or not required by law. Electronically signed by: Kin Vera M.D. 11/24/2019 6:52 PM
--- NOTE | 2019-11-24 21:53 | History & Physical Report ---
Date of Service November 24, 2019 Assessment & Plan (1) Pyelonephritis: CT a/p on 11/23 showed left-sided perinephric stranding, consistent with pyelonephritis. Additionally, shows a left-sided kidney stone. - Ceftriaxone - Follow blood and urine cultures - Urology consult to determine if stone needs removed as possible nidus of infection. (2) CAD (coronary artery disease): STEMI in 10/2015 with one stent placed. No chest pain or other signs/sy mptoms of ischemia today. Follows with Dr. Boston. 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 - Per UpToDate, "Asymptomatic patients with an incidental diagnosis and patients with a surprise diagnosis whose symptoms are not related to the imaging findings should not be treated." - As such, I believe risk reduction with current medications is all that is required. (4) DVT prophylaxis: SCDs - Low DVT risk per admission calculator Admission and Anticipated Discharge Date Admission Date: November 24, 2019 History of Present Illness Primary Care Provider: Elie Salamanca MD 74yo F w/ hx of CAD who presents for pyelonephritis and bacteremia. The patient reports being in her usual state of health until yesterday evening. She reports acute onset chills/rigors, back pain, leg pain, BECK, and nausea/vomiting, and diarrhea. This was out the blue for her, and she had been feeling generally well that day. She specifically denies any dysuria, polyuria, suprapubic pain, or other symptoms indicative of a UTI. She came to the ED early in the morning, and was recommended admission; however, she declined for concern over observation status. Her blood cultures came back positive, and she was called and asked to come to the hospital for admission. At present, her chills have subsided, and she is feeling tired, but overall ok. Allergies Allergy/AdvReac Type Severity Reaction Status Date / Time morphine AdvReac Intermediate NAUSEA/VOMI Verified 11/24/19 02:42 TING erythromycin base AdvReac Mild yeast Verified 11/24/19 02:42 infection ibandronate sodium AdvReac Mild diarrhea Verified 11/24/19 02:42 [From Bonnand[facility]] lisinopril AdvReac Mild COUGH Verified 11/24/19 02:42 Ibandronic Acid AdvReac Mild d/c'ed due Uncoded 11/24/19 02:42 to dental implant Home Medications Home Medications Medication Instructions Recorded Confirmed Type aspirin 81 mg tablet,delayed 81 mg PO QAM tab 12/22/18 11/24/19 History release atorvastatin 40 mg tablet 40 mg PO QAM tab 12/22/18 11/24/19 History flaxseed oil 1,000 mg capsule 1,000 mg PO DAILY cap 12/22/18 11/24/19 History green tea leaf extract 1 cap PO DAILY cap 12/22/18 11/24/19 History ibuprofen 200 mg tablet 200 mg PO QAM tab 12/22/18 11/24/19 History losartan 50 mg tablet 50 mg PO QAM #30 tab 12/22/18 11/24/19 History magnesium 250 mg tablet 250 mg PO DAILY 12/22/18 11/24/19 History metoprolol succinate 25 mg 25 mg PO HS #30 tab 12/22/18 11/24/19 History tablet,extended release 24 hr pyridoxine (vitamin B6) 100 mg 100 mg PO DAILY tab 12/22/18 11/24/19 History tablet amoxicillin 2,000 mg PO DIRECTED PRN 11/24/19 11/24/19 History cefdinir 300 mg PO BID 10 Days #20 cap 11/24/19 Rx coenzyme Q10 200 mg PO DAILY 11/24/19 11/24/19 History cyanocobalamin (vitamin B-12) 500 mcg PO DAILY 11/24/19 11/24/19 History [Vitamin B-12] pantoprazole 40 mg PO QAM 11/24/19 11/24/19 History Past Med/Surg History Medical History CAD (coronary artery disease) Surgical History H/O adenoidectomy H/O shoulder replacement left S/P knee replacement S/P tonsillectomy S/P tubal ligation Family History Mother Myocardial infarction Heart disease Father Myocardial infarction sudden at age 41 Sister jose antonio turner Denies family history of Ovarian cancer Prostate cancer Breast cancer Colorectal cancer Social History Smoking Status: Never smoker Second Hand Exposure: No; Hx Alcohol Use: Yes Hx Substance Use: No Preferred Language: Japanese Communication Ability: Effective Visual Impairment: No Limitations Hearing Ability: Normal Superannuation Funds Manager Required: No Beliefs That Will Affect Care: None marital status: Current Living Situation: Spouse current occupational status: retired Other Information That Helps Us Care for You: No Feels Safe at Home: Yes Safety Concerns: Feels Safe At This Time Dental Care, Regularly: Yes Physical Activity Frequency: 3-4 Times per Week Seatbelt Use: always Review of Systems Review of Systems: All systems reviewed & are unremarkable except as noted in HPI & below Physical Exam Constitutional: WD/WN, vitals as above Eyes: EOM intact bilaterally; no conjunctival abnormality ENMT: external ear and nose normal, oropharynx normal Neck: trachea midline, no thyromegaly normal visual inspection Respiratory: normal respiratory effort, lungs clear to auscultation no respiratory distress Cardiovascular: RRR, no murmur, no edema Gastrointestinal (Abdomen): Inspection/Auscultation: abdomen normal to inspection; abdomen not distended Musculoskeletal: no cyanosis or clubbing, extremities motor strength 5/5 Skin: no rashes, warm and dry Neurologic: moves all extremities and awake Psychiatric: Orientation: alert, oriented to person and cooperative Genitourinary: no CVA tenderness Results & Data Results & Data ([facility]) Vital Signs (Past 12 Hours) Vital Signs Temp Pulse Pulse Resp BP BP Pulse Ox 11/24/19 19:46 78 18 130/59 L 94 11/24/19 19:08 74 18 141/65 H 96 11/24/19 17:21 36.8 C 88 18 146/61 H 95 Code Status & VTE Plan VTE Prophylaxis Plan VTE Prophylaxis will be ordered: Yes PG Care Time/CCT Total # of Minutes Spent Total Time Spent with Patient: Total time spent is greater than 50% in coordination of care (as documented) at patient's floor/unit and/or counseling patient: Coding Level of Care Code 46900 Initial Inpt Care Lvl 3 Diagnoses Pyelonephritis N12 CAD (coronary artery disease) I25.10 Celiac artery stenosis I77.4 DVT prophylaxis Z29.9
[2019-11-24] MEDS: cefTRIAXone SODIUM 2,000 MG in DEXTROSE 5% 50 ML IV SCH (22:02)
[2019-11-24] MEDS: ACETAMINOPHEN 325 MG TAB PO PRN (22:02)
[2019-11-24] MEDS: SODIUM CHLORIDE 0.9% 1000ML 1,000 ML IV SCH (22:03)
[2019-11-24] MEDS: METOPROLOL SUCC 25MG EXT REL TAB PO SCH (22:03)
[2019-11-25] MEDS: ONDANSETRON INJ 2 MG/ML 2 ML VIAL IV PRN ×2 (05:49→18:40)
[2019-11-25] MEDS: ACETAMINOPHEN 325 MG TAB PO PRN ×2 (05:49→12:24)
[2019-11-25 06:31] LABS: Hematocrit (blood only) 33.3 % (37-47); Hemoglobin 10.8 g/dL (12.0-16.0); Mean Corpuscular Hemoglobin 28.1 pg (25-34); Mean Corpuscular Hgb Conc 32.4 g/dL (32-36); Mean Corpuscular Volume 86.7 fL (80-100); Mean Platelet Volume 9.8 fL (7.4-10.4); Platelet Count 165 K/uL (130-400); RDW Coefficient of Variation 15.5 % (11.5-14.5); RDW Standard Deviation 49.7 fL (36.4-46.3); Red Blood Count 3.84 M/uL (4.2-5.4); White Blood Count 13.31 K/uL (4.8-10.8)
[2019-11-25 06:59] LABS: BUN Creatinine Ratio 18.1 (10-20); Calcium 8.7 mg/dl (8.5-10.1); Creatinine Clr Calc Pharmacy 74.5 ml/min; Est GFR (African American) 101.1; Est GFR (Non-African American) 87.2; Potassium 3.6 mmol/L (3.5-5.1)
[2019-11-25] MEDS: PANTOprazole 40 MG TAB PO SCH (08:39)
[2019-11-25] MEDS: ASPIRIN 81 MG ECTAB PO SCH (08:39)
[2019-11-25] MEDS: ATORVASTATIN 40 MG TAB PO SCH (08:39)
[2019-11-25] MEDS: IBUPROFEN 200 MG TAB PO SCH (08:40)
[2019-11-25] MEDS: LOSARTAN POTASSIUM 50 MG TAB PO SCH (08:40)
--- NOTE | 2019-11-25 08:40 | Urology Consultation ---
Date of Consultation November 25, 2019 Assessment & Plan (1) Pyelonephritis: Acute pyelo - non-obstructing left lower pole stone - I do not feel that this is likely to be a major contributor to her current infections - recommend abx and supportive treatment - we can arrange an outpt f/u to monitor the stone and discuss elective treatment, but there is no indication for any acute intervention - we will follow peripherally History of Present Illness Attending Physician: Mat Venegas History of Present Illness admitted with pyelonephritis hx with numerous other chronic issues she currently feels well minor left flank pain no prior hx of either pyelonephritis or kidney stones interestingly, she does have a hx of hyperparathyroidism CT: left lower pole stone, some perinephric stranding, no hydro no ureteral stones Allergies Allergy/AdvReac Type Severity Reaction Status Date / Time morphine AdvReac Intermediate NAUSEA/VOMI Verified 11/24/19 02:42 TING erythromycin base AdvReac Mild yeast Verified 11/24/19 02:42 infection ibandronate sodium AdvReac Mild diarrhea Verified 11/24/19 02:42 [From Ciara] lisinopril AdvReac Mild COUGH Verified 11/24/19 02:42 Ibandronic Acid AdvReac Mild d/c'ed due Uncoded 11/24/19 02:42 to dental implant Home Medications Home Medications Medication Instructions Recorded Confirmed Type aspirin 81 mg tablet,delayed 81 mg PO QAM tab 12/22/18 11/24/19 History release atorvastatin 40 mg tablet 40 mg PO QAM tab 12/22/18 11/24/19 History flaxseed oil 1,000 mg capsule 1,000 mg PO DAILY cap 12/22/18 11/24/19 History green tea leaf extract 1 cap PO DAILY cap 12/22/18 11/24/19 History ibuprofen 200 mg tablet 200 mg PO QAM tab 12/22/18 11/24/19 History losartan 50 mg tablet 50 mg PO QAM #30 tab 12/22/18 11/24/19 History magnesium 250 mg tablet 250 mg PO DAILY 12/22/18 11/24/19 History metoprolol succinate 25 mg 25 mg PO HS #30 tab 12/22/18 11/24/19 History tablet,extended release 24 hr pyridoxine (vitamin B6) 100 mg 100 mg PO DAILY tab 12/22/18 11/24/19 History tablet amoxicillin 2,000 mg PO DIRECTED PRN 11/24/19 11/24/19 History cefdinir 300 mg PO BID 10 Days #20 cap 11/24/19 Rx coenzyme Q10 200 mg PO DAILY 11/24/19 11/24/19 History cyanocobalamin (vitamin B-12) 500 mcg PO DAILY 11/24/19 11/24/19 History [Vitamin B-12] pantoprazole 40 mg PO QAM 11/24/19 11/24/19 History Patient History Medical History CAD (coronary artery disease) Surgical History H/O adenoidectomy H/O shoulder replacement left S/P knee replacement S/P tonsillectomy S/P tubal ligation Family History Mother Myocardial infarction Heart disease Father Myocardial infarction sudden at age 41 Sister jose antonio turner Denies family history of Ovarian cancer Prostate cancer Breast cancer Colorectal cancer Social History Smoking Status: Never smoker Second Hand Exposure: No; Hx Alcohol Use: Yes Hx Substance Use: No Preferred Language: Yi Communication Ability: Effective Visual Impairment: No Limitations Hearing Ability: Normal Hospice Fellow Required: No Beliefs That Will Affect Care: None marital status: Current Living Situation: Spouse current occupational status: retired Other Information That Helps Us Care for You: No Feels Safe at Home: Yes Safety Concerns: Feels Safe At This Time Dental Care, Regularly: Yes Physical Activity Frequency: 3-4 Times per Week Seatbelt Use: always Review of Systems Constitutional: no fever, no chills and no fatigue Eyes: no worsening vision Ear, Nose, Mouth, Throat: no facial pain and no pain with swallowing Respiratory: no cough and no dyspnea Cardiovascular: no chest pain and no palpitations Gastrointestinal: + abdominal pain; no nausea and no vomiting Genitourinary: + dysuria; no difficulty urinating, no urinary frequency and no hematuria Musculoskeletal: no back pain Integumentary: no rash and no urticaria Neurologic: no gait abnormality and no unsteadiness Psychiatric: no behavioral changes and no depression Endocrine: no fatigue Results & Data ([facility]) Vital Signs (Past 12 Hours) Vital Signs Temp Pulse Resp BP Pulse Ox 11/25/19 07:01 37.5 C 69 18 127/59 L 93 11/24/19 23:08 37.3 C 88 18 106/66 95 PG Care Time/CCT Total # of Minutes Spent Total Time Spent with Patient: Total time spent is greater than 50% in coordination of care (as documented) at patient's floor/unit and/or counseling patient: Coding Level of Care Code 90584 Inpt Consult Level 3 Diagnoses Pyelonephritis N12
[2019-11-25] MEDS: SODIUM CHLORIDE 0.9% 1000ML 1,000 ML IV SCH ×2 (10:35→23:19)
--- NOTE | 2019-11-25 18:11 | Hospitalist Progress Note ---
Date of Service November 25, 2019 Assessment & Plan (1) Septicemia: presumed source - urine (u/a suggestive of UTI, and CT abd/pelvis with ?left-sided pyelonephritis findings). follow all cultures. repeat blood cultures today for test of cure. cont rocephin IV. cont IV fluids. repeat labs am. (2) Pyelonephritis: question of, based on CT abd/pelvis. no symptoms referrable to that side, however. if pyelo is present rocephin will cover. follow cultures. (3) Acute UTI (urinary tract infection): suspected follow culture (4) CAD (coronary artery disease): no ischemic sx's at this time cont statin, asa, BB, ARB (5) Celiac artery stenosis: no post-prandial GI symptoms thus asymptomatic from such cont asa and statin last LDL on lipids uncertain consider checking lipid profile while here (6) DVT prophylaxis: add lovenox 40mg daily updated at bedside consider PT eval Admission and Anticipated Discharge Date Admission Date: November 24, 2019 Subjective patient feels exhausted/tired/washed out overall feels slightly better than yesterday denies back pain, abd pain, bladder pain denies vomiting appetite fair at best no fevers/chills today at bedside Review of Systems Constitutional: + fatigue, + weakness and + anorexia Respiratory: no cough and no dyspnea Cardiovascular: no chest pain Gastrointestinal: no abdominal pain, no nausea and no vomiting Physical Exam Constitutional: + ill appearing; no acute distress and no altered mental status ENMT: Mouth: + dry oral mucous membranes Respiratory: normal respiratory effort, lungs clear to auscultation Cardiovascular: Rate/Rhythm: regular rate and regular rhythm Heart Sounds: normal S1 and normal S2; no murmur Vessels: posterior tibial pulses present and dorsalis pedis pulses present; no JVD Extremities: no edema Gastrointestinal (Abdomen): normal bowel sounds, soft, nontender, no hepatosplenomegaly no flank pain b/l Psychiatric: Orientation: alert and oriented x 3 Results & Data Results & Data ([facility]) Vital Signs (Past 12 Hours) Vital Signs Temp Pulse Resp BP Pulse Ox 11/25/19 15:49 37.0 C 74 18 136/72 94 11/25/19 11:26 36.5 C 78 16 126/61 95 11/25/19 07:01 37.5 C 69 18 127/59 L 93 Laboratory Results Laboratory Results - last 24 hr 11/24/19 11/24/19 11/24/19 18:14 18:14 18:14 WBC 18.86 H D RBC 3.95 L Hgb 11.0 L Hct 34.2 L MCV 86.6 MCH 27.8 MCHC 32.2 RDW Std Deviation 48.1 H RDW Coeff of Nabil 15.1 H Plt Count 197 MPV 9.4 Immature Gran % (Auto) 0.5 Neut % (Auto) 95.0 Lymph % (Auto) 2.5 [place] % (Auto) 1.8 Eos % (Auto) 0.1 Baso % (Auto) 0.1 Neut # (Auto) 17.91 H Lymph # (Auto) 0.48 L [place] # (Auto) 0.34 Eos # (Auto) 0.01 Baso # (Auto) 0.02 Immature Gran # (Auto) 0.10 H PT 11.8 INR 1.1 APTT 31.9 H PTT Ratio 1.1 Sodium 141 Potassium 3.8 Chloride 111 H Carbon Dioxide 23 Anion Gap 7.0 BUN 14 Creatinine 0.89 Est Cr Clr Drug Dosing 56.1 Est GFR ( Amer) 74.5 Est GFR (Non-Af Amer) 64.3 BUN/Creatinine Ratio 15.4 Glucose 99 Lactate Calcium 9.2 Magnesium 2.1 Total Bilirubin 0.7 AST 32 ALT 33 Alkaline Phosphatase 101 Total Protein 6.2 L Albumin 2.9 L Globulin 3.3 Albumin/Globulin Ratio 0.9 Procalcitonin Urine Color Urine Appearance Urine pH Ur Specific [place] Urine Protein Urine Glucose (UA) Urine Ketones Urine Blood Urine Nitrite Urine Bilirubin Urine Urobilinogen Ur Leukocyte Esterase Urine WBC (Auto) Urine RBC (Auto) U Hyaline Cast (Auto) U Epithel Cells (Auto) Urine Bacteria (Auto) 11/24/19 11/24/19 11/24/19 18:14 18:14 18:23 WBC RBC Hgb Hct MCV MCH MCHC RDW Std Deviation RDW Coeff of Nabil Plt Count MPV Immature Gran % (Auto) Neut % (Auto) Lymph % (Auto) [place] % (Auto) Eos % (Auto) Baso % (Auto) Neut # (Auto) Lymph # (Auto) [place] # (Auto) Eos # (Auto) Baso # (Auto) Immature Gran # (Auto) PT INR APTT PTT Ratio Sodium Potassium Chloride Carbon Dioxide Anion Gap BUN Creatinine Est Cr Clr Drug Dosing Est GFR ( Amer) Est GFR (Non-Af Amer) BUN/Creatinine Ratio Glucose Lactate 1.5 Calcium Magnesium Total Bilirubin AST ALT Alkaline Phosphatase Total Protein Albumin Globulin Albumin/Globulin Ratio Procalcitonin 40.05 H Urine Color Yellow Urine Appearance Clear Urine pH 5.0 Ur Specific [place] 1.018 Urine Protein Negative Urine Glucose (UA) Negative Urine Ketones Negative Urine Blood 2+ H Urine Nitrite Negative Urine Bilirubin Negative Urine Urobilinogen Negative Ur Leukocyte Esterase 2+ H Urine WBC (Auto) >30 H Urine RBC (Auto) 0-4 U Hyaline Cast (Auto) 1-5 U Epithel Cells (Auto) 0-5 Urine Bacteria (Auto) Negative 11/25/19 11/25/19 06:13 06:13 WBC 13.31 H RBC 3.84 L Hgb 10.8 L Hct 33.3 L MCV 86.7 MCH 28.1 MCHC 32.4 RDW Std Deviation 49.7 H RDW Coeff of Nabil 15.5 H Plt Count 165 MPV 9.8 Immature Gran % (Auto) Neut % (Auto) Lymph % (Auto) [place] % (Auto) Eos % (Auto) Baso % (Auto) Neut # (Auto) Lymph # (Auto) [place] # (Auto) Eos # (Auto) Baso # (Auto) Immature Gran # (Auto) PT INR APTT PTT Ratio Sodium 141 Potassium 3.6 Chloride 113 H Carbon Dioxide 20 L Anion Gap 8.0 BUN 12 Creatinine 0.67 Est Cr Clr Drug Dosing 74.5 Est GFR ( Amer) 101.1 Est GFR (Non-Af Amer) 87.2 BUN/Creatinine Ratio 18.1 Glucose 107 H Lactate Calcium 8.7 Magnesium 2.0 Total Bilirubin AST ALT Alkaline Phosphatase Total Protein Albumin Globulin Albumin/Globulin Ratio Procalcitonin Urine Color Urine Appearance Urine pH Ur Specific [place] Urine Protein Urine Glucose (UA) Urine Ketones Urine Blood Urine Nitrite Urine Bilirubin Urine Urobilinogen Ur Leukocyte Esterase Urine WBC (Auto) Urine RBC (Auto) U Hyaline Cast (Auto) U Epithel Cells (Auto) Urine Bacteria (Auto) blood cx's with GNR urine cx pending PG Care Time/CCT Total # of Minutes Spent Total Time Spent with Patient: Total time spent is greater than 50% in coordination of care (as documented) at patient's floor/unit and/or counseling patient: Coding Level of Care Code 27132 Subseq Hosp Care Lvl 2 Diagnoses Septicemia A41.9 Pyelonephritis N12 Acute UTI (urinary tract infection) N39.0 CAD (coronary artery disease) I25.10 Coronary Disease-Associated Artery/Lesion type: [place] artery [place] vs. transplanted heart: [place] heart Associated angina: without angina Celiac artery stenosis I77.4 DVT prophylaxis Z29.9 (1) CAD (coronary artery disease) Coronary Disease-Associated Artery/Lesion type: [place] artery [place] vs. transplanted heart: [place] heart Associated angina: without angina Qualified Code(s): I25.10 - Atherosclerotic heart disease of [place] coronary artery without angina pectoris
--- NOTE | 2019-11-25 19:12 | Electrocardiogram Report ---
Test Reason : Blood Pressure : / mmHG Vent. Rate : 078 BPM Atrial Rate : 078 BPM P-R Int : 160 ms QRS Dur : 078 ms QT Int : 398 ms P-R-T Axes : 073 013 031 degrees QTc Int : 453 ms Poor data quality, interpretation may be adversely affected Normal sinus rhythm Normal ECG When compared with ECG of 24-NOV-2019 02:25, No significant change was found Confirmed by Elie Heard ([id number]) on 11/25/2019 7:11:51 PM Referred By: REFERRED SELF Confirmed By:Aly Heard
[2019-11-25] MEDS ORDERED: OXYCODONE/ACETAMINOPHEN 5mg/325mg TAB PO PRN (19:36)
[2019-11-25] MEDS: METOPROLOL SUCC 25MG EXT REL TAB PO SCH (20:43)
[2019-11-25] MEDS: cefTRIAXone SODIUM 2,000 MG in DEXTROSE 5% 50 ML IV SCH (20:43)
[2019-11-26] MEDS: ONDANSETRON INJ 2 MG/ML 2 ML VIAL IV PRN (01:00)
[2019-11-26] MEDS ORDERED: GUAIFENESIN/DEXTROM SYRUP 100MG/10MG 5ML UDC PO PRN (01:52)
[2019-11-26 07:50] LABS: Hematocrit (blood only) 33.2 % (37-47); Hemoglobin 10.9 g/dL (12.0-16.0); Mean Corpuscular Hemoglobin 28.1 pg (25-34); Mean Corpuscular Volume 85.6 fL (80-100); Mean Platelet Volume 9.5 fL (7.4-10.4); Platelet Count 153 K/uL (130-400); RDW Coefficient of Variation 15.5 % (11.5-14.5); RDW Standard Deviation 48.5 fL (36.4-46.3); Red Blood Count 3.88 M/uL (4.2-5.4); White Blood Count 12.55 K/uL (4.8-10.8)
[2019-11-26 07:50] LABS: BUN Creatinine Ratio 12.6 (10-20); Calcium 8.7 mg/dl (8.5-10.1); Creatinine Clr Calc Pharmacy 84.6 ml/min; Est GFR (African American) 105.4; Est GFR (Non-African American) 90.9; Potassium 3.7 mmol/L (3.5-5.1)
[2019-11-26 08:36] LABS: Mean Corpuscular Hgb Conc 32.8 g/dL (32-36)
[2019-11-26] MEDS: ACETAMINOPHEN 325 MG TAB PO PRN (08:40)
[2019-11-26] MEDS: PANTOprazole 40 MG TAB PO SCH (08:40)
[2019-11-26] MEDS: ATORVASTATIN 40 MG TAB PO SCH (08:41)
[2019-11-26] MEDS: ASPIRIN 81 MG ECTAB PO SCH (08:41)
[2019-11-26] MEDS: IBUPROFEN 200 MG TAB PO SCH (08:41)
[2019-11-26] MEDS: LOSARTAN POTASSIUM 50 MG TAB PO SCH (08:41)
[2019-11-26] MEDS: SODIUM CHLORIDE 0.9% 1000ML 1,000 ML IV SCH (08:46)
[2019-11-26] MEDS: ENOXAPARIN INJ 40 MG/0.4 ML SYR SQ SCH (10:22)
--- NOTE | 2019-11-26 15:28 | Ultrasound Report ---
US gallbladder CLINICAL HISTORY: e.coli septicemia; r/o cholecystitis COMPARISON STUDY: CTA of the abdomen and pelvis November 24, 2019. FINDINGS: This exam is compromised by suboptimal penetration. There is no biliary ductal dilatation. The common bile duct measures 4 mm in caliber. No gallstones are noted. There is a 4 mm gallbladder p olyp. There is no gallbladder wall thickening. Note is made of a 1.3 cm right hepatic lobe cyst. The pancreatic body is normal. Head and tail are obscured. There is no right hydronephrosis. IMPRESSION: 1. No gallstones or biliary ductal dilatation. No evidence for acute cholecystitis. 2. Tiny 4 mm gallbladder polyp. ACT 112: Negative or not required by law. Electronically signed by: Kin Vera M.D. 11/26/2019 3:27 PM
[2019-11-26] MEDS: LACTOBACILLUS ACIDOPHILUS (FLORANEX) TAB PO SCH ×2 (17:11→22:04)
--- NOTE | 2019-11-26 20:14 | Hospitalist Progress Note ---
Date of Service November 26, 2019 Assessment & Plan (1) Septicemia: improved. presumed source - still likely the urine. Although urine cx was negative her admission u/a was suggestive of UTI, and CT abd/pelvis showed ?left-sided pyelonephritis findings. as precautionary measure, and in light of abdominal pain, I obtained gall bladder u/s today; no findings to suggest cholecystitis as cause of septicemia. repeat blood cultures from 11/24 remain negative. can stop rocephin IV and change to IV cipro with ultimate PO cipro for home use. add lactinex. stop IVF. repeat labs am. (2) Pyelonephritis: question of, based on CT abd/pelvis. improved. (3) Acute UTI (urinary tract infection): see discussion above in "septicemia" (4) CAD (coronary artery disease): STEMI 2nd to RCA occlusion 10/2015 -- s/p stenting 30% LAD, 30% OM based on records had chest discomfort last night but it only lasted 30 sec and was associated with abdominal pain unlikely to have been ischemia but if symptoms recur will need additional investigation cont statin, asa, BB, ARB (5) Celiac artery stenosis: was NOT having post-prandial GI symptoms at home however she did have abdominal pain last night after eating this bears very close watching cont asa and statin last LDL on lipids uncertain will check profile in am (6) Diarrhea: add lactinex check c diff if this persists in light of broad-spectrum IV abx (7) Abdominal pain: gall bladder/biliary? mesenteric ischemia? due to diarrhea? non-GI (ie ischemia from CAD)? follow this carefully (8) DVT prophylaxis: lovenox 40mg daily updated at bedside once again will obtain PT eval due to weakness Admission and Anticipated Discharge Date Admission Date: November 24, 2019 Subjective patient reports having had abdominal pain - right-sided - last evening. no vomiting. she was able to tolerate breakfast this am without pain but appetite still is not the greatest. having loose stools - had 3 yesterday, 1 today. some lumbar back pain but no flank pain. headache overnight - but improved this am. no fevers. ambulating to bathroom. at bedside. Review of Systems Constitutional: + fatigue and + anorexia; no fever and no chills Respiratory: no dyspnea and no dyspnea on exertion Cardiovascular: + chest pain (had brief episode last night - 30 sec or less; came on at same time as abdomen) Gastrointestinal: + abdominal pain, + nausea and + diarrhea/loose stools; no v omiting Physical Exam Constitutional: + ill appearing; no acute distress and no altered mental status ENMT: external ear and nose normal, oropharynx normal Respiratory: normal respiratory effort, lungs clear to auscultation Cardiovascular: Rate/Rhythm: regular rate and regular rhythm Heart Sounds: normal S1 and normal S2; no murmur Vessels: posterior tibial pulses present and dorsalis pedis pulses present; no JVD Extremities: no edema Gastrointestinal (Abdomen): normal bowel sounds, soft, nontender, no hepatosplenomegaly Psychiatric: Orientation: alert and oriented x 3 Results & Data Results & Data ([facility]) Vital Signs (Past 12 Hours) Vital Signs Temp Pulse Resp BP Pulse Ox 11/26/19 15:35 36.7 C 74 20 134/83 90 Laboratory Results Laboratory Results - last 24 hr 11/26/19 11/26/19 11/26/19 06:41 06:41 07:41 WBC Cancelled 12.55 H RBC Cancelled 3.88 L Hgb Cancelled 10.9 L Hct Cancelled 33.2 L MCV Cancelled 85.6 MCH Cancelled 28.1 MCHC Cancelled 32.8 RDW Std Deviation Cancelled 48.5 H RDW Coeff of Nabil Cancelled 15.5 H Plt Count Cancelled 153 MPV Cancelled 9.5 Absolute Nucleated RBC Cancelled Nucleated RBC % (auto) Cancelled Platelet Estimate Cancelled Sodium 140 Potassium 3.7 Chloride 112 H Carbon Dioxide 20 L Anion Gap 8.0 BUN 8 Creatinine 0.59 L Est Cr Clr Drug Dosing 84.6 Est GFR ( Amer) 105.4 Est GFR (Non-Af Amer) 90.9 BUN/Creatinine Ratio 12.6 Glucose 122 H Calcium 8.7 blood cx's from admission - pansens e.coli blood cx's (repeat) from 11/24 - neg to date urine cx neg PG Care Time/CCT Total # of Minutes Spent Total Time Spent with Patient: Total time spent is greater than 50% in coordination of care (as documented) at patient's floor/unit and/or counseling patient: Coding Level of Care Code 41056 Subseq Hosp Care Lvl 3 Diagnoses Septicemia A41.9 Pyelonephritis N12 Acute UTI (urinary tract infection) N39.0 CAD (coronary artery disease) I25.10 Associated angina: without angina Coronary Disease-Associated Artery/Lesion type: [place] artery [place] vs. transplanted heart: [place] heart Celiac artery stenosis I77.4 Diarrhea R19.7 Abdominal pain R10.9 DVT prophylaxis Z29.9 (1) CAD (coronary artery disease) Associated angina: without angina Coronary Disease-Associated Artery/Lesion type: [place] artery [place] vs. transplanted heart: [place] heart Qualified Code(s): I25.10 - Atherosclerotic heart disease of [place] coronary artery without angina pectoris
[2019-11-26] MEDS: METOPROLOL SUCC 25MG EXT REL TAB PO SCH (22:04)
[2019-11-26] MEDS: CIPROFLOXACIN / D5W 400 MG/200 ML BAG IV SCH (22:04)
[2019-11-27] MEDS: ACETAMINOPHEN 325 MG TAB PO PRN (05:57)
[2019-11-27 07:00] LABS: BUN Creatinine Ratio 17.9 (10-20); Calcium 8.8 mg/dl (8.5-10.1); Creatinine Clr Calc Pharmacy 97.9 ml/min; Est GFR (African American) 110.6; Est GFR (Non-African American) 95.4; Potassium 3.4 mmol/L (3.5-5.1)
[2019-11-27] MEDS ORDERED: POTASSIUM CHLORIDE 20 MEQ TABCR PO STA ×2 (07:50→12:38)
[2019-11-27] MEDS: PANTOprazole 40 MG TAB PO SCH (08:16)
[2019-11-27] MEDS: LACTOBACILLUS ACIDOPHILUS (FLORANEX) TAB PO SCH ×3 (08:17→17:08)
[2019-11-27] MEDS: ATORVASTATIN 40 MG TAB PO SCH (08:17)
[2019-11-27] MEDS: LOSARTAN POTASSIUM 50 MG TAB PO SCH (08:17)
[2019-11-27] MEDS: ASPIRIN 81 MG ECTAB PO SCH (08:17)
[2019-11-27] MEDS: ENOXAPARIN INJ 40 MG/0.4 ML SYR SQ SCH ×2 (08:18→08:20)
[2019-11-27] MEDS ORDERED: CIPROFLOXACIN 500 MG TAB PO SCH (10:30)
[2019-11-27] MEDS: CIPROFLOXACIN / D5W 400 MG/200 ML BAG IV SCH (10:34)
[2019-11-27] MEDS ORDERED: FUROSEMIDE 20 MG TAB PO ONE (12:38)
--- NOTE | 2019-11-27 16:53 | Discharge Summary ---
Date of Service date of admission - November 24, 2019 date of discharge - November 27, 2019 Admission HPI Per Admitting Provider 74yo F w/ hx of CAD who presents for pyelonephritis and bacteremia. The patient reports being in her usual state of health until yesterday evening. She reports acute onset chills/rigors, back pain, leg pain, BECK, and nausea/vomiting, and diarrhea. This was out the blue for her, and she had been feeling generally well that day. She specifically denies any dysuria, polyuria, suprapubic pain, or other symptoms indicative of a UTI. She came to the ED early in the morning, and was recommended admission; however, she declined for concern over observation st atus. Her blood cultures came back positive, and she was called and asked to come to the hospital for admission. At present, her chills have subsided, and she is feeling tired, but overall ok. Principal Diagnosis e.coli septicemia Discharge Exam Constitutional + morbidly obese; no acute distress and no altered mental status ENMT external ear and nose normal, oropharynx normal Respiratory no respiratory distress Auscultation: + diminished lung sounds (bases); no crackles and no wheezes Cardiovascular Rate/Rhythm: regular rate and regular rhythm Heart Sounds: normal S1 and normal S2; no murmur Vessels: posterior tibial pulses present and dorsalis pedis pulses present; no JVD Extremities: no edema Gastrointestinal (Abdomen) normal bowel sounds, soft, nontender, no hepatosplenomegaly Musculoskeletal no flank pain or tenderness to palpation Psychiatric Orientation: alert and oriented x 3 Discharge Data Allergies Allergy/AdvReac Type Severity Reaction Status Date / Time morphine AdvReac Intermediate NAUSEA/VOMI Verified 12/01/19 13:56 TING erythromycin base AdvReac Mild yeast Verified 12/01/19 13:56 infection ibandronate sodium AdvReac Mild diarrhea Verified 12/01/19 13:56 [From [facility]] lisinopril AdvReac Mild COUGH Verified 12/01/19 13:56 Ibandronic Acid AdvReac Mild d/c'ed due Uncoded 11/24/19 02:42 to dental implant Consultations Urology - Elie Parks MD PT Ordered Studies 1. CT abd/pelvis (done early in day on 11/24/19) - IMPRESSION: 1. Moderate to advanced atherosclerotic plaque of the abdominal aorta and branch vessels. There is resultant high-grade stenosis at the celiac origin with mild to moderate multifocal arterial narrowing as above. 2. No dissection, aneurysm or arterial occlusion identified. 3. No bowel obstruction or bowel wall thickening. 4. Nonobstructing left nephrolithiasis. Additionally, there is mild left-sided pelviectasis with mild asymmetric left-sided perinephric stranding. Correlate with urinalysis. 5. Moderate hiatal hernia. 2. US gallbladder - IMPRESSION: 1. No gallstones or biliary ductal dilatation. No evidence for acute cholecystitis. 2. Tiny 4 mm gallbladder polyp. Hospital Course (1) Septicemia: Source - urinary tract (urine culture as below; CT abd/pelvis with some suggestion of left-sided pyelonephritis). Blood cultures from early on 11/24/2019 were positive for pansensitive e.coli. Urine culture did not speciate but there was 5000 CFU of a gram negative payal - presumed to be e.coli. Repeat blood cultures from 11/25/2019 were negative ensuring sterility/test of cure. As a precautionary measure a gall bladder u/s was obtained to ensure that the biliary tree was not the source for her septicemia. There were NO findings to suggest cholecystitis as the cause of the septicemia. Patient was treated initially with broad-spectrum IV antibiotics, and prior to discharge she was changed to oral cipro. She tolerated all antibiotics well. She will complete an additional 12 days of oral cipro 500mg BID at home. (2) Pyelonephritis: suspected - based on clinical presentation, u/a findings, and CT abd/pelvis findings. improved/resolved with IV antibiotic therapy. (3) Acute UTI (urinary tract infection): see discussion above in "septicemia" (4) Left nephrolithiasis: [place] [facility] The kidney stone present on left was NOT felt to represent a contributor to her presentation. Acute stone intervention was not recommended. Dr Parks recommended routine follow-up with urology to discuss options moving forward for elective treatment once discharged from the hospital. (5) CAD (coronary artery disease): STEMI 2nd to RCA occlusion 10/2015 -- s/p stenting. 30% LAD, 30% OM found during 10/2015 cath as well. Continue statin, aspirin, metoprolol, and losartan. (6) Celiac artery stenosis: This was found incidentally on CTA abdomen on 11/24/2019. Prior to this admission she was NOT having post-prandial GI symptoms at home. Patient did have an episode of abdominal pain after eating the night prior to discharge. This bears very close watching as an outpatient. If she has recurrent post-prandial abdominal pain spells the celiac artery stenosis could certainly be the root cause. Continue aspirin and statin agent. LDL on lipid profile this admission was 44. (7) Pulmonary edema: The patient likely had very mild pulmonary edema in the setting of significant fluid resuscitation during her stay. O2 sats with walking and at rest were normal, however, and lung exam was relatively normal. [id number] she was given oral lasix on day of discharge, and will take 2 more days of such at home for fluid retention. K supplementation was also provided. Total Time Total Time Spent Total Time Spent (In Minutes): 40 Total Time Includes: Examination of the Patient, Discharge Planning and Medication Reconciliation Discharge Plan Discharge Items Patient Disposition: Home - Self-Care Reason For Visit: Septicemia; Pyelonephritis; UTI. Discharge Diagnosis: 1. septicemia/bacteremia - blood stream infection - due to urinary tract infection (UTI). Resolved. 2. left-sided pyelonephritis - kidney infection - resolved. 3. UTI - resolved. 4. celiac artery stenosis - plaque build-up in an artery of the abdominal cavity - found incidentally on CAT scan of the abdomen. Activity: As commented below Activity Comment: gradually increase your activites over the next 5-7 days Exercise/Sports: Wait until after follow-up appointment Driving/Machine Use: Resume 3 days after discharge Non-emergency contact: Primary Care Provider Call non-emergency contact if: you have any medication questions, your symptoms worsen, your pain is not controlled, your pain is worsening, your pain is unusual for you, your pain is concerning for you and you have a fever Follow-up/Referrals: Misael Salamanca MD [Primary Care Provider] - 12/01/19 2:00 pm (see Dr Salamanca within [address] Salamanca does not have any appointments available for this time period. Your appointment is going to be with Dr Salamanca's physician assistant community director, Marie Freeman. If you need to change this appoinment, please call [phone]. ) Diet: Heart Healthy Addtl Attending Provider Instructions: You were admitted to the hospital because your blood cultures showed evidence of bacteria. The suspected cause of the septicemia/bacteremia was the urinary tract. Your urine culture ultimately showed bacterial growth, and the CAT scan of the abdomen with pelvis appeared to show a left-sided kidney infection. You received IV antibiotics and fluids with improvement in your symptoms. Your repeat blood cultures from 11/25/19 are thus far negative suggesting that you have cleared the bloodstream infection. Septicemia/bacteremia is a serious illness and takes 1-2 weeks (sometimes longer) to completely recover from it. You will feel tired upon return home but will gradually feel better over time. You did appear to gain fluid weight while hospitalized. We gave you a dose of lasix (furosemide) water pill on 11/27/19 to help rid the body of the excess fluid. Lastly, we performed an ultrasound of your gall bladder and this was negative for gallstones or signs of an ill gall bladder. Thus, your gall bladder was NOT the source of bacteria in your blood. Recommendations - 1. cipro 500mg twice daily for 12 more days, first dose tonight on 11/27/19. This is your antibiotic for the kidney/blood/urinary infection. 2. take saccharomyces probiotics once daily for 2 weeks. This may help prevent diarrhea from the cipro. 3. eat extra yogurt daily for the next 2 weeks. 4. for fluid weight gain -- * Sat, 11/27 - take 20mg furosemide along with potassium supplement; take in the morning. * Sun, 11/28 - take 20mg furosemide along with potassium supplement; take in the morning. 5. if you experience repeat episodes of abdominal pain following meals at home please let Dr Salamanca know right away. This could be a sign that the celiac artery stenosis (Plaque build-up in abdominal artery) is causing trouble and needs attention. 6. continue to socially distance, wear a mask when outside your home, and obtain a flu shot this fall. It really would be best for you to stay at home tonight to rest and recover from your illness. Follow-up - see Dr Salamanca within 5-7 days Return to [facility] if - * you have recurrent fevers over 100.4 degrees * you have worsening abdominal pain * you have recurrent vomiting * you have severe diarrhea * you have worsening shortness of breath * any other concerns Pending Studies at Discharge: Yes Studies:: repeat blood cultures from 11/25/19 but these are thus far negative suggesting the blood stream infection has resolved Stand-Alone Forms: [facility], Smoking Cessation Medications and DC Order Prescriptions: New ciprofloxacin HCl 500 mg Tablet 500 mg PO BID 12 Days Qty: 24 RF: 0 Saccharomyces boulardii 250 mg capsule 250 mg PO DAILY 14 Days Qty: 14 RF: 0 furosemide [Lasix] 20 mg tablet 20 mg PO DAILY Qty: 10 RF: 0 potassium chloride 20 mEq tablet extended release 20 meq PO DAILY Qty: 10 RF: 0 Continued pyridoxine (vitamin B6) 100 mg tablet 100 mg PO DAILY RF: 0 flaxseed oil 1,000 mg capsule 1,000 mg PO DAILY RF: 0 aspirin 81 mg tablet,delayed release (DR/EC) 81 mg PO QAM RF: 0 atorvastatin 40 mg tablet 40 mg PO QAM RF: 0 magnesium 250 mg tablet 250 mg PO DAILY RF: 0 metoprolol succinate 25 mg tablet extended release 24 hr 25 mg PO HS Qty: 30 RF: 0 losartan 50 mg tablet 50 mg PO QAM Qty: 30 RF: 0 Green Tea capsule 1 cap PO DAILY RF: 0 cyanocobalamin (vitamin B-12) [Vitamin B-12] 500 mcg Tablet 500 mcg PO DAILY RF: 0 pantoprazole 40 mg tablet,delayed release (DR/EC) 40 mg PO QAM RF: 0 coenzyme Q10 200 mg Capsule 200 mg PO DAILY RF: 0 amoxicillin 500 mg tablet 2,000 mg PO DIRECTED PRN (Reason: PreTreat Dental Work) RF: 0 Discontinued ibuprofen 200 mg tablet 200 mg PO QAM RF: 0 cefdinir 300 mg capsule 300 mg PO BID 10 Days Qty: 20 RF: 0 Discharge Orders: Discharge Order (Routine); Ordered 11/27/19 Ordered By: Mat Venegas Admission Data Admit Date/Time: 11/24/19 18:57 Attending Provider: Mat Venegas Admit Provider: Guillermo Gomez Primary Care Provider: Misael Salamanca Other Providers: Guillermo Gomez ; [facility] Other Interventions: Discharge Summary Assessment (RN) Last Done: 11/27/19 17:03 Coding Level of Care Code D/C Day Management >30 mins Diagnoses Septicemia A41.9 Pyelonephritis N12 Acute UTI (urinary tract infection) N39.0 Left nephrolithiasis N20.0 CAD (coronary artery disease) I25.10 Associated angina: without angina Coronary Disease-Associated Artery/Lesion type: barrow artery [place] vs. transplanted heart: barrow heart Celiac artery stenosis I77.4 Pulmonary edema J81.1
== END 2019-11-27 17:30 | disposition home or self-care (01) | DRG 872 ==
LOC: ED 17:20 → SUATTDRO 18:57 → 2N 18:57

== ENCOUNTER 2023-10-18 06:51 | Observation (INO) ==
--- NOTE | 2023-09-30 11:22 | PAT Medication Instructions ---
Medication Instructions Date of Service September 30, 2023 Home Medications aspirin 81 mg tablet,delayed release 81 mg PO QAM flaxseed oil 1,000 mg capsule 1,000 mg PO QPM green tea leaf extract (Green Tea capsule) 1 cap PO QPM magnesium 250 mg tablet 250 mg PO QPM pyridoxine (vitamin B6) 100 mg tablet 100 mg PO QPM amoxicillin 500 mg tablet 2,000 mg PO DIRECTED PRN cyanocobalamin (vitamin B-12) 500 mcg tablet (Vitamin B-12) 1,000 mcg PO QPM latanoprost 0.005 % eye drops, emulsion (Xelpros) 1 drp ophthalmic (eye) HS coenzyme Q10 200 mg capsule (Co Q-10) 200 mg PO QPM cholecalciferol (vitamin D3) 25 mcg (1,000 unit) capsule 1,000 unit PO QPM metoprolol succinate 25 mg tablet,extended release 24 hr 12.5 mg PO HS pantoprazole 20 mg tablet,delayed release 40 mg PO QAM acetaminophen 500 mg tablet 1,000 mg PO Q6H PRN ibuprofen 200 mg capsule 400 mg PO Q6H PRN losartan 100 mg tablet 100 mg PO QAM Beet Root 1,000 mg PO QAM ferrous sulfate 325 mg (65 mg iron) tablet (Iron (ferrous sulfate)) 325 mg PO QPM pravastatin 40 mg tablet 80 mg PO HS Continue as directed amoxicillin 500 mg tablet 2,000 mg PO DIRECTED PRN(if needed) ASK your surgeon for instructions ibuprofen 200 mg capsule 400 mg PO Q6H PRN ASK your prescriber and surgeon aspirin 81 mg tablet,delayed release 81 mg PO QAM STOP taking 2 weeks before surgery (or as soon as possible if surgery is within 2 weeks) flaxseed oil 1,000 mg capsule 1,000 mg PO QPM green tea leaf extract (Green Tea capsule) 1 cap PO QPM coenzyme Q10 200 mg capsule (Co Q-10) 200 mg PO QPM Beet Root 1,000 mg PO QAM DO NOT take the morning of surgery losartan 100 mg tablet 100 mg PO QAM Take morning of surgery With a small sip of water, OTHERWISE NOTHING TO EAT OR DRINK AFTER MIDNIGHT: pantoprazole 20 mg tablet,delayed release 40 mg PO QAM acetaminophen 500 mg tablet 1,000 mg PO Q6H PRN(if needed) Take evening before surgery magnesium 250 mg tablet 250 mg PO QPM pyridoxine (vitamin B6) 100 mg tablet 100 mg PO QPM cyanocobalamin (vitamin B-12) 500 mcg tablet (Vitamin B-12) 1,000 mcg PO QPM latanoprost 0.005 % eye drops, emulsion (Xelpros) 1 drp ophthalmic (eye) HS cholecalciferol (vitamin D3) 25 mcg (1,000 unit) capsule 1,000 unit PO QPM metoprolol succinate 25 mg tablet,extended release 24 hr 12.5 mg PO HS acetaminophen 500 mg tablet 1,000 mg PO Q6H PRN(if needed) ferrous sulfate 325 mg (65 mg iron) tablet (Iron (ferrous sulfate)) 325 mg PO QPM pravastatin 40 mg tablet 80 mg PO HS Other Notes If you have any questions please call us at [phone] or [phone] or [phone] or [phone]
--- NOTE | 2023-10-09 14:26 | Anesthesiology Consultation ---
Date of Service October 09, 2023 Assessment & Plan (1) Encounter for pre-operative examination: - Infectious disease screening: Per assessment on 10/09/23: No known recent infectious disease contacts or current infectious disease symptoms. - Outpatient joint assessment: Pt currently scheduled for inpatient pathway. If surgeon requests review for outpatient joint pathway, patient is not recommended candidate for outpatient joint program from anesthesia standpoint based on available information. - PCP visit (08/15/23): "Reviewed patient's iron-deficiency anemia and results of EGD colonoscopy and capsular endoscopy. She has an appointment with Hematology next week for further evaluation of her iron-deficiency anemia. Her hemoglobin has improved to a little over 10. She will see her press writer next week.. and see if she will be cleared from a cardiovascular standpoint in relation to her anemia. Will wait recommendations from copy messenger and with her press writer prior to medically clearing her for surgery." - Hematology visit (08/20/23): "History of iron deficiency anemia who has been on iron infusions in the past.. Workup including colonoscopy, upper GI endoscopy, capsule endoscopy.. The patient feels better after IV iron infusions. Scheduled to undergo shoulder surgery if hemoglobin is consistently above 10. She reports no active bleeding or bruising. She has not noticed any blood in stool.. Labs done in the clinic are consistent with iron deficiency anemia with a low serum iron, elevated TIBC, ferritin level was only 17. Will give 1 cycle of IV Feraheme. Will reassess labs in about 8 weeks to assess for response and see whether the patient needs [facility] IV iron supplementation. She cannot tolerate oral iron as she gets stomach upset." > Patient states at PAT visit that last iron infusion was 08/2023. Preop labs 10/09/23 note improved hgb at 12.3. - Cardiology visit (09/09/23): "She can accomplish 4 METS. She is a moderate risk to proceed with her surgery in the range of 3% including heart attack, dying from cardiac causes, arrhythmias, and congestive heart failure. I would like her to have an echo prior to her procedure. She was newly diagnosed with iron deficiency anemia. It sounds like source of her low iron is indeterminate with colonoscopy, EGD, and capsule endoscopy unrevealing of source of blood loss.. She has had 2 iron infusions so far. She does have a referral for hematology. From a cardiology perspective given her history of CAD.. Her hemoglobin should be at least 10 before proceeding with surgery.." > Echo obtained 09/18/23 and "stable" from 2021 per cardiology review. - Surgery was originally scheduled 04/2023 but postponed given PCP recommendation of further evaluation of anemia prior to surgery. She has since had EGD/colonoscopy/capsule endoscopy without definite source of blood loss. She has received multiple iron infusions. Cardiology recommends hgb > 10 prior to surgery from their perspective given hx of CAD. Preop labs done 10/09/23 note improved hgb at 12.3. Per 07/2023 [facility] PCP visit, preop hematology/cardiology evaluations to give final clearance from PCP perspective. Patient seen by heme and cardiology subsequently 08/2023. PCP made aware. Patient acceptable risk for surgery pending final PCP clearance ([facility], Jessica Mcelroy PAC). Chart Review Chart Review: Patient seen in Pre Admission Testing Teaching & Discussion Pre-Anesthesia Teaching/Discussion Notes: Instructed NPO after midnight before s urgery,except medications with 15 cc of water. Medication instructions provided according to the PAT guidelines. History Surgery Operation Date: 10/18/23 12:00 Proposed Procedures p Left Reverse Total Shoulder Arthroplasty - Patrick Shi, Height/Weight Height: 4 ft 9 in Weight: 82.1 kg Allergies Allergy/AdvReac Type Severity Reaction Status Date / Time morphine AdvReac Intermediate N/V Verified 09/27/23 07:30 erythromycin base AdvReac Mild Yeast Verified 09/27/23 07:30 infection ibandronate sodium AdvReac Mild Diarrhea Verified 09/27/23 07:30 [From Ciara] lisinopril AdvReac Mild Cough Verified 09/27/23 07:30 metformin AdvReac Severe Diarrhea Uncoded 09/27/23 07:30 Ibandronic Acid AdvReac Mild Discontinued Uncoded 09/27/23 07:30 due to dental implant Medications Home Medications Medication Instructions Recorded Confirmed Last Taken aspirin 81 mg tablet,delayed 81 mg PO QAM 12/22/18 09/27/23 09/02/20 release flaxseed oil 1,000 mg capsule 1,000 mg PO QPM 12/22/18 09/27/23 05/25/23 green tea leaf extract (Green Tea 1 cap PO QPM 12/22/18 09/27/23 05/25/23 capsule) magnesium 250 mg tablet 250 mg PO QPM 12/22/18 09/27/23 05/25/23 pyridoxine (vitamin B6) 100 mg 100 mg PO QPM 12/22/18 09/27/23 05/25/23 tablet amoxicillin 500 mg tablet 2,000 mg PO DIRECTED PRN 11/24/19 09/27/23 07/18/20 PreTreat Dental Work cyanocobalamin (vitamin B-12) 500 1,000 mcg PO QPM 11/24/19 09/27/23 05/25/23 mcg tablet (Vitamin B-12) latanoprost 0.005 % eye drops, 1 drp ophthalmic (eye) HS Eye 08/11/20 09/27/23 05/27/23 emulsion (Xelpros) pressure coenzyme Q10 200 mg capsule (Co 200 mg PO QPM 09/01/20 09/27/23 05/25/23 Q-10) cholecalciferol (vitamin D3) 25 1,000 unit PO QPM 06/27/22 09/27/23 05/25/23 mcg (1,000 unit) capsule metoprolol succinate 25 mg 12.5 mg PO HS #30 tabs 08/27/22 09/27/23 05/27/23 tablet,extended release 24 hr pantoprazole 20 mg tablet,delayed 40 mg PO QAM gerd 08/27/22 09/27/23 05/28/23 06:00 release acetaminophen 500 mg tablet 1,000 mg PO Q6H PRN Pain 04/08/23 09/27/23 05/27/23 ibuprofen 200 mg capsule 400 mg PO Q6H PRN Pain 04/08/23 09/27/23 Unknown losartan 100 mg tablet 100 mg PO QAM 04/08/23 09/27/23 05/28/23 06:00 Beet Root 1,000 mg PO QAM 09/27/23 09/27/23 Unknown ferrous sulfate 325 mg (65 mg 325 mg PO QPM 09/27/23 09/27/23 Unknown iron) tablet (Iron (ferrous sulfate)) pravastatin 40 mg tablet 80 mg PO HS 09/27/23 09/27/23 Unknown Past Medical History Medical History Auras "Never gets the actual migraines" Biceps tendonosis of left shoulder Celiac artery stenosis (2019) Noted on CTS, "no issues" Crepitus of left shoulder joint Cyst of left kidney Under surveillance, "stable" Gallbladder polyp "No issues" GERD (gastroesophageal reflux disease) Hiatal hernia History of diverticulosis History of kidney stones History of ST elevation myocardial infarction (STEMI) (2015) Inferior posterolateral [place] > 1 stent (2015) Follows with Dr. Boston Hx of colonic polyp Hypercholesteremia Hyperlipidemia Hypertension Iron deficiency anemia Hx iron infusions x 4 (most recent 08/2023) Follows with hematology Mitral valve disorder Echo 09/2023: Mild MR Osteoarthritis Osteopenia PAD (peripheral artery disease) Cardio monitoring Prediabetes Diet controlled Exercise / Class Metabolic Activity III < 4 Walking/Shop/Light housework Past Family History Family History Mother Myocardial infarction Heart disease Diabetes Coronary heart disease Father Myocardial infarction sudden at age 41 Coronary heart disease Sister jose antonio turner Denies family history of Ovarian cancer Prostate cancer Breast cancer Colorectal cancer Past Surgical History Surgical History H/O hand surgery (2005) Fracture wrist/hand H/O shoulder replacement (02/2017) Right History of cardiac cath (2015) stent x1 History of esophagogastroduodenoscopy (EGD) EGD/colonoscopy [facility] (05/2023) History of surgery (11/2022) [facility], nodule removed from parathyroid History of tonsillectomy and adenoidectomy (1959) Hx of colonoscopy with polypectomy (05/2023) Hx of endoscopy (07/30/23) video capsule endoscopy - no findings S/P cystoscopy with ureteral stent placement (09/08/20) Cystoscopy, Ureteronephroscopy, Laser Destruction Stone, stent S/P knee replacement (2015) left S/P tubal ligation Past Anesthesia History No Hx of Anesthesia Complications and No Family Hx of Anesthesia Complications (except postop nausea for son) History of PONV No Hx of PONV and Hx of Motion Sickness (Mild) Social History Smoking Status: Never smoker Do You Dip or Chew Tobacco: No Hx Alcohol Use: Yes Alcohol type: wine alcohol intake frequency: holidays/special occasions only Hx Substance Use: No substance use type: does not use Review of Systems Patient denies chest pain, shortness of breath, fever, chills, cough, wheezing, palpitations. Physical Exam Vital Signs BP 127/86 P 73 TEMP 98.1 SP02 97%RA RESP 16 Physical Full cervical extension range of motion. Full TMJ range of motion. TMD 3 finger breaths Mallampati Score II Dentition: intact, + implants/crowns (sides/molars) Lungs: clear throughout to auscultation Cardiac: regular rate and rhythm, no murmurs noted Spine: normal Carotid arteries: negative bruit Extremities: no LE edema Lab Results Anesthesia Preop Results Results Anesthesia Widget: WBC 7.42 K/ul (4.8-10.8) 10/09/23 Hgb 12.3 g/dl (12.0-16.0) 10/09/23 Hct 38.6 % (37.0-47.0) 10/09/23 Plt 293 K/uL (130-400) 10/09/23 Na 140 mmol/L (136-145) 08/20/23 K 4.1 mmol/L (3.5-5.1) 08/20/23 Cl 106 mmol/L (98-107) 08/20/23 CO2 27 mmol/L (21-32) 08/20/23 BUN 17 mg/dl (6-23) 08/20/23 Creat 0.77 mg/dl (0.6-1.2) 08/20/23 Glucose Level 93 mg/dl (70-99(Fasting)) 08/20/23 PT 10.1 Seconds (9.0-12.0) 10/09/23 PTT 27 Seconds (21-31) 10/09/23 INR 0.9 (0.9-1.1) 10/09/23 HA1c 5.7 % (4.5-5.6) H 10/09/23 Blood Type O Positive 10/09/23 Antibody Screen NEGATIVE 10/09/23 Testing Electrocardiogram Date: 12/14/22 Findings: + NSR @ (85) Chest X-Ray Date: 04/09/23 FINDINGS: Right shoulder arthroplasty is partially imaged. There is a moderate sized hiatal hernia. There is mild cardiomegaly without evidence for pulmonary edema. No consolidation is present. There is no pneumothorax or pleural effusion. IMPRESSION: No acute cardiopulmonary findings. Echocardiogram Date: 09/18/23 EF 65%. Mild LVD. Grade II DD. Mild LAD. Mild MR/TR. Mildly elevated pulmonary artery pressures, estimated PASP 38mmhg. No significant change compared to 08/11/2021 study per report. Other Testing TRANG Date: 02/18/23 Monophasic Doppler waveforms insonated in the bilateral common femoral Arteries. Monophasic Doppler waveforms and sedated in the bilateral distal superficial femoral, popliteal, distal posterior tibial, distal peroneal and distal anterior tibial arteries, consistent with hemodynamically significant or occlusion of the bilateral Superficial femoral arteries. The ankle/brachial indices are severely reduced bilaterally, 0.43 on the right and 0.[address] Boston made aware of findings per report.
[~2023-10-18 06:51] MED LIST changes: -ACETAMINOPHEN 500 MG TAB PO SCH; -ASPI81TA28 PO; -ATOR-24 PO; +BUPIVACAINE 0.5 % 5 MG/1 ML PF 10ML VIAL ONE; -CEFAZOLIN 2000MG IV PUSH 10 ML IV SCH; -CYAN500T13 PO; -FAMOTIDINE 20 MG TAB PO SCH; -FLAX10007 PO; -GABAPENTIN 300 MG CAP PO SCH; -IBUP-1050 PO; -LACTATED RINGER'S 1000ML 1,000 ML IV SCH; -LACTATED RINGER'S 1000ML IV SCH; -LOSA50TA6 PO; -MAGN250T3 PO; -MISC1TAB74 PO; -PYRI100T4 PO; -ROPIVACAINE 5MG/ML 30 ML 150 MG, BUPIVACAINE 0.5% MPF INJ 30 ML, EpINEphrine HCL INJ 0.... INFIL SCH; -TPRSR/25 PO; -ZNTT/150 PO
[2023-10-18] MEDS ORDERED: LIDOCAINE 2% 2 ML VIAL/AMP(20MG/ML) INFIL ONE (07:43)
[2023-10-18] MEDS ORDERED: PROPOFOL IV EMULSION 10 MG/ML 20 ML VIAL IV ONE (07:43)
[2023-10-18] MEDS ORDERED: MIDAZOLAM HCL 1 MG/ML 2ML VIAL ONE (07:44)
[2023-10-18] MEDS ORDERED: fentaNYL citrate PF 100 MCG/2 ML VIAL ONE (07:44)
[2023-10-18] MEDS: ACETAMINOPHEN 500 MG TAB PO SCH ×2 (07:54→14:05)
[2023-10-18] MEDS: GABAPENTIN 300 MG CAP PO SCH (07:55)
[2023-10-18] MEDS: dexAMETHasone**PF** 10 MG/ML VIAL IV SCH (07:55)
[2023-10-18] MEDS: FAMOTIDINE 20 MG TAB PO SCH (07:55)
[2023-10-18] MEDS: LR 60ML/HR IV SCH (07:56)
[2023-10-18] MEDS: LR 15ML/HR IV SCH (07:56)
--- NOTE | 2023-10-18 08:02 | History & Physical Bridge Note ---
Date of Service October 18, 2023 History & Physical Bridge Note I have examined the patient, reviewed the History & Physical and in the interval since the performance of the History & Physical I have noted the following changes of clinical significance: no changes noted
[2023-10-18] MEDS: TRANEXAMIC ACID 1,000 MG **IV Pre-op IV SCH (08:43)
[2023-10-18] MEDS ORDERED: ATROPINE SULFATE 0.1 MG/ML 10ML SYR IV PRN (08:55)
[2023-10-18] MEDS ORDERED: ePHEDrine sulfate 50 MG/ML AMP IV PRN (08:55)
[2023-10-18] MEDS ORDERED: fentaNYL citrate PF 100 MCG/2 ML VIAL IV PRN (08:55)
[2023-10-18] MEDS ORDERED: ONDANSETRON INJ 2 MG/ML 2 ML VIAL IV PRN (08:55)
[2023-10-18] MEDS: ceFAZolin 2000MG 2,000 MG/15 ML SYR IV SCH ×2 (08:57→17:04)
[2023-10-18] MEDS: ORTHO JOINT ANESTHETIC ONE (09:43)
[2023-10-18] MEDS: ROPIV 0.5% 246mg, Ketorolac 30mg, EPINEPHrine 0.5mg in NSS INFIL SCH (09:55)
[2023-10-18] MEDS ORDERED: PHENYLEPHRINE HCL 10 MG/ML VIAL ONE (09:58)
[2023-10-18] MEDS ORDERED: ONDANSETRON INJ 2 MG/ML 2 ML VIAL ONE (09:58)
[2023-10-18] MEDS: TRANEXAMIC ACID 1,000 MG **IV Intra-op IV SCH (09:58)
[2023-10-18] MEDS ORDERED: PHENYLEPHRINE 100MCG/ML 10ML SYR IV ONE (09:58)
--- NOTE | 2023-10-18 10:01 | Operative Report ---
PG Post Operative Report Pre & Post Diagnosis Operation Date: 10/18/23 09:00 Pre-Op Diagnosis: Osteoarthritis of Left Shoulder with tendinopathy long head of biceps tendon Post-Op Diagnosis: Osteoarthritis of Left Shoulder with tendinopathy long head of the biceps tendon I identified the patient and participated in the time-out.: Yes Procedure Operation Date: 10/18/23 09:00 Actual Procedures p Left Reverse Total Shoulder Arthroplasty(Left) with open biceps tenodesis as a distinct and separate procedure (modifier 59)- Patrick Shi DO Surgeon Patrick Shi DO Rivet Hole Machine Operator Patrick Marcus PA-C Estimated Blood Loss 100 Findings Consistent with Post-Op Diagnosis Specimens Left humeral head Description of Procedure A CPT code modifier 59: The long head of the biceps tendon was enlarged and inflamed consistent with tendinopathy. A tenodesis was opted. This was a separate and distinct portion of the procedure. For these reasons, a CPT code modifier 59 will be added to this case. Implants used: I used a [employer] Comprehensive reverse total shoulder arthroplasty system with a size 10 press fit micro humeral stem, a +6 offset humeral tray and a +3 retentive humeral bearing, a 25 mm baseplate with a 6.5 mm central screw and superior and inferior locking screws, and a size 36 mm eccentric glenosphere. Arelis arrived at [facility] for the above procedure. She was seen in the preoperative holding area and the operative extremity was identified and signed. She was given a preoperative antibiotic, TXA, and an interscalene nerve block. She was taken back to the operating room, laid on table in supine position, and put under general anesthesia. She was then put into the beachchair position. The shoulder was then prepped and draped in sterile fashion. A timeout was done and the patient and the operative extremity was properly identified. A deltopectoral approach was used. Dissection was taken down through the fascia and the deltoid was retracted laterally and the conjoined tendon was retracted medially. The anterior shoulder was exposed. The biceps groove was opened up and the biceps tendon was examined extensively. The biceps tendon demonstrated enlargement and inflammatory changes consistent with longstanding inflammation in the context of osteoarthritis and cuff arthropathy. The long head of the biceps tendon was then tenodesed to the upper border of the pectoralis major. This was a separate and distinct portion of the procedure. The subscapularis was then directly released off the lesser tuberosity with a peel technique. The inferior capsule was released and the humeral head was dislocated. A canal finding reamer was sent down the center of the humeral canal. Sequential reaming up to a size 10 reamer was done. Off that reamer, a proximal humeral resection guide was placed. The proximal humerus was resected at 135 of inclination and 25 of retroversion. Osteophytes were then removed and the glenoid was exposed. Time was spent doing a complete capsular and labral release. The glenoid guide was then placed in the inferior aspect of the glenoid. A 3.2 mm Steinmann pin was then placed into the glenoid vault at 10 of inclination. A [employer] Signature One guide was then attached onto the anterior rim of the glenoid. A 3.2 mm Steinmann pin was then placed in the reverse total shoulder arthroplasty hole. The glenoid baseplate was then reamed. The final size 25 mm baseplate was then impacted in the place. A 6.5 mm central screw was then placed followed by superior and inferior locking screws. A 36 mm eccentric glenosphere was then impacted into place. Surrounding soft tissues were then injected with 100 cc an orthopedic pain control cocktail. The proximal humerus was then exposed. Sequential broaching of the humerus up to a size 10 broach was done. Off that broach a +6 offset and +3 retentive humeral tray was trialed. The shoulder was then reduced, brought through a full range of motion, and felt to be stable. The shoulder was then dislocated and the broach was removed. The final size 10 micro press-fit humeral stem was then impacted into place. A +3 retentive humeral bearing was then snapped onto a +6 offset humeral tray. The humeral tray was then impacted onto the humeral stem. The shoulder was once again reduced, brought through a full range of motion, and felt to be stable. Subscapularis was poor quality and unable to be repaired. A dilute betadyne lavage was then done for 3 minutes. The joint was then irrigated with normal saline solution. Hemostasis was obtained. The interval was closed with 2-0 Vicryl suture. The skin was then closed with 2-0 Vicryl and angy. A Silverlon dressing was placed and the arm was rested in a regular arm sling. She was then extubated and transferred to a hospital bed. She taken to the postanesthesia care unit in stable condition. She tolerated the procedure well. Patrick Marcus PA-C, was present for the entire procedure. He was critical for patient positioning, prepping, draping, retraction exposure, wound closure and application of sterile dressing. I attest to the content of the Intraoperative Record and any orders documented therein. Any exceptions are noted below.
[2023-10-18] MEDS ORDERED: SUGAMMADEX SODIUM 200 MG/2 ML VIAL IV ONE (10:07)
--- NOTE | 2023-10-18 10:42 | XRay Report ---
XR shoulder LT min 2V routine CLINICAL HISTORY: Post shoulder surgery COMPARISON STUDY: None. FINDINGS: No fracture or dislocation within the left shoulder. There is a reverse left total shoulder arthroplasty. The hardware appears intact. Skin angy are in place. IMPRESSION: Status post reverse left total shoulder arthroplasty. No evidence for hardware complicat ion. ACT 112: Negative or not required by law. Electronically signed by: Jhon Gerard M.D. 10/18/2023 10:40 AM
[2023-10-18] MEDS: LABETALOL HCL IV 5 MG/ML 20ML IV STA (11:13)
[2023-10-18] MEDS: LABETALOL HCL IV 5 MG/ML 20ML IV ONE (11:14)
[2023-10-18] MEDS ORDERED: MAGNESIUM HYDROXIDE SUSP 30 ML UDC PO PRN (12:01)
[2023-10-18] MEDS ORDERED: bisacodyL 10 MG SUPP PR PRN (12:01)
[2023-10-18] MEDS ORDERED: NALOXONE HCL 0.4 MG/1 ML VIAL/CARP IV PRN (12:01)
[2023-10-18] MEDS: KETOROLAC TROMETHAMINE 15 MG/ML VIAL IV SCH (12:50)
[2023-10-18] MEDS: SODIUM CHLORIDE 0.9% 1,000 ML IV SCH (12:50)
[2023-10-18] MEDS: ONDANSETRON INJ 2 MG/ML 2 ML VIAL IV PRN (14:44)
[2023-10-18] MEDS: SENNA 8.6 MG TAB PO SCH (19:41)
[2023-10-18] MEDS: PYRIDOXINE HCL 50 MG TAB PO SCH (19:41)
[2023-10-18] MEDS: MAGNESIUM OXIDE 400 MG TAB PO SCH (19:42)
[2023-10-18] MEDS: DOCUSATE SODIUM 100 MG CAP PO SCH (19:42)
[2023-10-18] MEDS: PRAVASTATIN SOD 40 MG TAB PO SCH (19:42)
[2023-10-18] MEDS: LATANOPROST 0.005% OP SOLN 2.5 ML BTL OP SCH (19:43)
[2023-10-18] MEDS: METOPROLOL SUCC 25MG EXT REL TAB PO SCH (19:45)
[2023-10-18] MEDS: oxyCODONE HCL IR 5 MG TAB (IMMEDIATE RELEASE) PO PRN (21:56)
[2023-10-19] MEDS: HYDROmorphone INJ 0.5 MG/0.5 ML SYR IV PRN (05:17)
[2023-10-19] MEDS: dexAMETHasone 4 MG TAB PO SCH (08:12)
[2023-10-19] MEDS: MULTIVITAMIN TAB PO SCH (08:12)
[2023-10-19] MEDS: LOSARTAN POTASSIUM 50 MG TAB PO SCH (08:12)
[2023-10-19] MEDS: ASPIRIN 81 MG ECTAB PO SCH (08:13)
[2023-10-19] MEDS: METOCLOPRAMIDE HCL INJ 5 MG/ML 2 ML VIAL IV PRN (08:15)
--- NOTE | 2023-10-19 08:33 | Orthopedic Progress Note ---
Date of Service October 19, 2023 Assessment & Plan (1) Status post reverse total replacement of left shoulder: Overall she is doing very well. She is not having much pain in the left shoulder. Unfortunately she is having a little bit of nausea but she has nausea medications on board. She will be seen by physical therapy today for ambulation and range of motion exercises. If she is feeling better she can be discharged home later today. She will follow-up orthopedics in 2 weeks. Brennon Infante was seen and examined at bedside this morning. Overall she is doing very well. She is not having much pain in the left shoulder. She is having a little bit of nausea. Otherwise she has no complaints.. Review of Systems All systems reviewed & are unremarkable except as noted in HPI & below. Physical Exam On physical examination left shoulder, the dressing is clean and dry. She is wearing her sling as instructed. She has active motion of her hand and her wrist.. Results & Data Results & Data Laboratory Results . Diagnostic Findings Postoperative x-rays of the left shoulder show the prosthesis to be in anatomic alignment without any evidence of fracture, dislocation, or loosening.. PG Care Time/CCT Total # of Minutes Spent Total Time Spent with Patient: Total time spent is greater than 50% in coordination of care (as documented) at patient's floor/unit and/or counseling patient: Coding Level of Care Code 21505 Post Operative Follow-Up Diagnoses Status post reverse total replacement of left shoulder Z96.612
--- NOTE | 2023-10-19 08:34 | Discharge Summary ---
Date of Service October 19, 2023 Principal Diagnosis Same as "Discharge Diagnosis" noted below under Discharge Instructions. Discharge Exam On physical examination left shoulder, the dressing is clean and dry. She is wearing her sling as instructed. She has active motion of her hand and her wrist.. Discharge Data Procedures Performed Operation Date: 10/18/23 09:00 Actual Procedures p Left Reverse Total Shoulder Arthroplasty(Left) - Patrick Shi DO Ordered Studies 10/18/23 05:00 US - OR guided needle placemen Routine Hospital Course (1) Status post reverse total replacement of left shoulder: On October 18, 2023 Arelis arrived at [facility] and underwent a left reverse shoulder replacement without complication. She had a general anesthetic and a left interscalene nerve block. Postoperatively she was placed in a sling and transferred to the general orthopedic floors. Her hospital course was uneventful. On postop day #1, her vital signs were stable and her pain was well-controlled. She was able to participate well with physical therapy doing ambulation and range of motion exercises. She was then discharged home. She will follow-up with orthopedics in 2 weeks. PG Care Time/CCT Total # of Minutes Spent Total Time Spent with Patient: Total time spent is greater than 50% in coordination of care (as documented) at patient's floor/unit and/or counseling patient: Discharge Plan Discharge Items Patient Disposition: Home - Self-Care Reason For Visit: Degenerative Joint Disease Left Shoulder Discharge Diagnosis: Left reverse shoulder replacement Activity: Per Instructions section Non-emergency contact: Surgeon Call non-emergency contact if: your wound has increased redness and your wound has increased drainage Follow-up/Referrals: Elie Salamanca MD [Primary Care Provider] - Diet: Regular Addtl Attending Provider Instructions: Activity and Therapy Recommendations: * If you are using [facility] then therapy will be provided at your home until they feel you have accomplished all of your goals. * If you are using [facility] then Physical Therapy will be provided until they feel you are ready to start Outpatient Physical Therapy. * If you are not using home therapy then Outpatient Physical Therapy should start about 3-5 days from your day of surgery. Therapy will last about 8-12 weeks * Wear your sling for 3 weeks, unless otherwise instructed. You may remove your sling to shower and to dress, but otherwise, you should be in your sling at all times, including while sleeping * The shoulder replacement is very stable and you can use your hand while in the sling * You were shown a series of exercises in the hospital. Do these exercises daily including the exercises you were shown in physical therapy. Medications: * Narcotic You will likely be sent home from the hospital with a prescription for the narcotic pain medication that worked best throughout your stay. * Cefadroxil -take the antibiotic twice a day for 10 days to help prevent infection. * Other medications may be prescribed for specific circumstances. If you have any questions, please call the office at . * Resume previous home medications unless otherwise instructed Dressing Care: Leave the Silverlon dressing in place for 7 days. After 7 days you may remove the dressing. If the incision is not draining then you may leave the angy open to air. If there is a little bit of drainage or if the angy are getting stuck on your clothing then cover the incision with a dry dressing. The angy will be removed at your 2 week follow-up appointment. Showering: You may shower with the Silverlon dressing in place. Do not let the shower spray hit the dressing directly. Pat the Silverlon dressing dry. If the dressing becomes wet underneath, then simply remove the dressing. Keep the incision dry until you are 7 days out from the day of surgery. After 7 days you may remove the Silverlon dressing and shower with the angy exposed. Let soapy water run over the angy and pat them dry. Do not scrub or soak the incision. Things To Watch For: * Drainage from the incision site that occurs more than one week after your surgery. * Increased redness at the incision site. * Fever above 102 degrees Fahrenheit. * Unusual chest pain or shortness of breath. * Call [facility] at with any of the above problems Follow-Up Visit: Follow-up with Dr. Shi's PA (Patrick Marcus) 2-3 weeks after your day of surgery. He will remove your angy and answer any questions. If you have any additional questions or concerns, Dr Shi is usually in the office at the same time and will be available An appointment was probably scheduled when you signed-up for surgery in the office. If you have any questions call More detailed instructions as well as Frequently Asked Questions were provided in a folder by our office when you signed-up for surgery. Please review these instructions when you get home. If you have any further questions or concerns, please feel free to call the office at [phone] Pending Studies at Discharge: No Stand-Alone Forms: My [facility] [employer], Smoking Cessation Medications and DC Order Prescriptions: New tramadol 50 mg tablet 50 mg PO Q6H PRN (Reason: pain) Qty: 30 0RF cefadroxil 500 mg capsule 500 mg PO BID 10 Days Qty: 20 0RF Continued Xelpros 0.005 % drops, emulsion 1 drp ophthalmic (eye) HS Patient Comments: 125 mcg/2.5 ml Rx Instructions: 1 drop each eye QPM cholecalciferol (vitamin D3) 25 mcg (1,000 unit) capsule 1,000 unit PO QPM Patient Comments: w/supper pantoprazole 20 mg tablet,delayed release (DR/EC) 40 mg PO QAM pyridoxine (vitamin B6) 100 mg tablet 100 mg PO QPM Patient Comments: w/supper flaxseed oil 1,000 mg capsule 1,000 mg PO QPM Patient Comments: w/supper aspirin 81 mg tablet,delayed release (DR/EC) 81 mg PO QAM Rx Instructions: dr Boston states ok to stop 5 days prior to surgery magnesium 250 mg tablet 250 mg PO QPM Patient Comments: w/supper Green Tea capsule 1 cap PO QPM Patient Comments: w/supper metoprolol succinate 25 mg tablet extended release 24 hr 12.5 mg PO HS Qty: 30 cyanocobalamin (vitamin B-12) [Vitamin B-12] 500 mcg Tablet 1,000 mcg PO QPM Patient Comments: w/supper amoxicillin 500 mg tablet 2,000 mg PO DIRECTED PRN (Reason: PreTreat Dental Work) Rx Instructions: TAKE 4 TABLETS ONE HOUR PRIOR TO DENTAL WORK coenzyme Q10 [Co Q-10] 200 mg Capsule 200 mg PO QPM Patient Comments: w/supper ibuprofen 200 mg Capsule 400 mg PO Q6H PRN (Reason: Pain) Patient Comments: has been using 2 tablets every morning as of 03/2023 acetaminophen 500 mg Tablet 1,000 mg PO Q6H PRN (Reason: Pain) losartan 100 mg tablet 100 mg PO QAM ferrous sulfate [Iron (ferrous sulfate)] 325 mg (65 mg iron) Tablet 325 mg PO QPM Beet Root 1 unit 1,000 mg PO QAM pravastatin 40 mg tablet 80 mg PO HS Discharge Orders: Discharge Order (Routine); Ordered 10/19/23 Ordered By: Patrick Shi Admission Data Admit Date/Time: 10/18/23 10:19 Attending Provider: Patrick Shi Admit Provider: Patrick Shi Primary Care Provider: Elie Salamanca
--- NOTE | 2023-10-22 08:44 | Anesthesiology Progress Note ---
Date of Service October 18, 2023 Anesthesia Post Procedure Pain Intensity Left Arm: Pain Intensity: 5 Transfer of Care Handoff Completed per policy Notes Mental Status: alert / awake / arousable Patient Amnestic to Procedure: Yes Nausea / Vomiting: adequately controlled Pain: adequately controlled Airway Patency, RR, SpO2: stable & adequate BP & HR: stable & adequate Hydration State: stable & adequate Anesthetic Complications: no major complications apparent and Pt Satisfied with anesthetic care
== END 2023-10-19 11:20 | disposition home or self-care (01) ==
LOC: ASU 06:51 → 3N 06:51